=== PATIENT | female | born 1945 | race Caucasian/White ===

== ENCOUNTER → 2018-01-24 | Outpatient (CLI) | payer MEDICARE, OTHER ==
[2018-01-24 18:00] LABS: ALANINE AMINOTRANSFERASE 26 U/L (9-52); ALBUMIN 3.7 g/dL (3.5-5.0); ALKALINE PHOSPHATASE 107 U/L (38-126); ANION GAP 6 (5-19); ASPARTATE AMINO TRANSFERASE 23 U/L (14-36); BILIRUBIN,DIRECT 0.2 mg/dL (0.0-0.4); BILIRUBIN,TOTAL 0.4 mg/dL (0.2-1.3); BLOOD UREA NITROGEN 27 mg/dL (7-20); CALCIUM 9.7 mg/dL (8.4-10.2); CARBON DIOXIDE 29 mmol/L (22-30); CHLORIDE 108 mmol/L (98-107); GLUCOSE 90 mg/dL (75-110); POTASSIUM 3.9 mmol/L (3.6-5.0); TOTAL PROTEIN 6.6 g/dL (6.3-8.2)
== END ==
LOC: OD 16:35
PROVIDERS: ATTEND Physician Assistant
DX: R60.9 Edema, unspecified (principal)
CPT/HCPCS: 36415; 80048; 80076

== ENCOUNTER → 2018-03-19 | Outpatient (CLI) | payer MEDICARE, OTHER ==
--- NOTE | 2018-03-19 15:32 | RADIOLOGY REPORT (SQ) ---
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 TECHNIQUE: CT scan of the chest performed using helical scanning technique with dynamic intravenous contrast injection. Images reviewed with lung, soft tissue and bone windows. Reconstructed coronal and sagittal MPR images reviewed. Additional 3 dimensional post-processing performed to develop Maximal Intensity Projection images (NM P). All images stored on PACS. All CT scanners at this facility use dose modulation, iterative reconstruction, and/or weight based d osing when appropriate to reduce radiation dose to as low as reasonably achievable (ALARA). [facility]: Dose Right [facility]: CareDose [facility]: Dose Right [facility]: Teradose 4D [facility]: [employer] CONTRAST TYPE AND DOSE: 48 cc Omnipaque 350 Contrast bolus optimized for the pulmonary arteries. Not diagnostic for the aorta. RENAL FUNCTION: Creatinine 0.8 RADIATION DOSE: . LIMITATIONS: None. FINDINGS: LUNGS AND PLEURA: Minimal bibasilar hypoventilatory change. No masses, infiltrates, or pn eumothorax. No pleural effusions or pleural calcifications. AORTA AND GREAT VESSELS: Mild dilation of the ascending aorta measuring up to 3.9 cm. Vascular stent within the proximal left internal carotid artery. Partially visualized abdominal aortic vascular st ent. Scattered aortic atherosclerosis. Some wall HEART: No pericardial effusion. No significant coronary artery calcifications. PULMONARY ARTERIES: Contrast bolus not optimized for evaluation of the pulmonary arteries. HILAR AND MEDIASTINAL STRUCTURES: No identified masses or abnormal nodes. HARDWARE: Vascular stent in proximal left carotid artery. UPPER ABDOMEN: Partially visualized abdominal aortic stent. THYROID AND OTHER SOFT TISSUES: Asymmetric soft tissue densities within the bilateral breasts. BONES: Compression fracture of the L1 vertebral body with approximately 20% height loss. Mild retrop ulsion at the T12-L1 disc space. Acute or significant finding. 3D MIPS: Confirm above findings. OTHER: No other significant finding. IMPRESSION: Dilation of the ascending aorta measuring up to 3.9 cm. Partially visualized abdominal aortic stent. Asymmetric soft tissue density within the bilateral breasts. Recommend correlation with mammographic history. L1 compression fracture with approximately 20% height loss, chronicity uncertain. COMMENT: Quality ID # 436: Final reports with documentation of one or more dose reduction techniques (e.g., Automated exposure control, adjustment of the mA and/or kV according to patient size, use of iterative reconstruction technique) TECHNICAL DOCUMENTATION: JOB ID: [id number] [email or web address]- All Rights Reserved Reading location - IP/workstation name: [email or web address]
== END ==
LOC: RAD 09:32
PROVIDERS: ATTEND Physician Assistant
DX: I71.2 Thoracic aortic aneurysm, without rupture (principal)
CPT/HCPCS: 71275; 82565

== ENCOUNTER → 2018-03-27 | Outpatient (CLI) | payer MEDICARE, OTHER ==
[2018-03-27 11:08] LABS: ALANINE AMINOTRANSFERASE 18 U/L (9-52); ALBUMIN 3.7 g/dL (3.5-5.0); ALKALINE PHOSPHATASE 120 U/L (38-126); ANION GAP 5 (5-19); ASPARTATE AMINO TRANSFERASE 24 U/L (14-36); BILIRUBIN,DIRECT 0.2 mg/dL (0.0-0.4); BILIRUBIN,TOTAL 0.4 mg/dL (0.2-1.3); BLOOD UREA NITROGEN 23 mg/dL (7-20); CALCIUM 9.7 mg/dL (8.4-10.2); CARBON DIOXIDE 28 mmol/L (22-30); CHLORIDE 108 mmol/L (98-107); GLUCOSE 102 mg/dL (75-110); POTASSIUM 4.6 mmol/L (3.6-5.0); SODIUM 140.7 mmol/L (137-145); TOTAL PROTEIN 6.6 g/dL (6.3-8.2)
== END ==
LOC: OD 10:00
PROVIDERS: ATTEND Physician Assistant
DX: R60.9 Edema, unspecified (principal); I10 Essential (primary) hypertension; Z79.899 Other long term (current) drug therapy
CPT/HCPCS: 36415; 80048; 80076

== ENCOUNTER → 2018-04-16 | Outpatient (CLI) | payer MEDICARE, OTHER ==
[2018-04-16 14:31] LABS: ALANINE AMINOTRANSFERASE 50 U/L (9-52); ALBUMIN 3.6 g/dL (3.5-5.0); ALKALINE PHOSPHATASE 103 U/L (38-126); ANION GAP 8 (5-19); ASPARTATE AMINO TRANSFERASE 28 U/L (14-36); BILIRUBIN,DIRECT 0.2 mg/dL (0.0-0.4); BILIRUBIN,TOTAL 0.4 mg/dL (0.2-1.3); BLOOD UREA NITROGEN 27 mg/dL (7-20); CALCIUM 9.7 mg/dL (8.4-10.2); CARBON DIOXIDE 27 mmol/L (22-30); CHLORIDE 106 mmol/L (98-107); GLUCOSE 101 mg/dL (75-110); POTASSIUM 4.3 mmol/L (3.6-5.0); SODIUM 141.2 mmol/L (137-145); TOTAL PROTEIN 6.6 g/dL (6.3-8.2)
== END ==
LOC: OD 12:47
PROVIDERS: ATTEND Physician Assistant
DX: R60.9 Edema, unspecified (principal); I10 Essential (primary) hypertension; R06.00 Dyspnea, unspecified; Z79.899 Other long term (current) drug therapy
CPT/HCPCS: 36415; 80048; 80076; 83880

== ENCOUNTER → 2018-04-19 | Outpatient (CLI) | payer MEDICARE, OTHER ==
--- NOTE | 2018-04-24 14:46 | WOMENS IMAGING REPORT ---
EXAM DESCRIPTION: 3D SCREENING MAMMO BILAT COMPLETED DATE/TIME: 04/19/2018 12:18 pm REASON FOR STUDY: Z12.31 Z12.31 ENCNTR SCREEN MAMMOGRAM FOR MALIGNANT NEOPLASM OF EMELY COMPARISON: 04/06/2017, 04/05/2016, and 01/29/2015 TECHNIQUE: Standard craniocaudal and mediolateral oblique views of each breast recorded using digita l acquisition and breast tomosynthesis. LIMITATIONS: None. FINDINGS: Findings present which are benign by mammographic criteria. No suspicious masses, calcifi cations or architectural distortion. Pertinent benign findings: Stable surgical changes and extensive calcifications. Read with the assistance of CAD. .[facility] - R2 Cenova Version 1.3 .[facility] Imaging - R2 Cenova Version 1.3 .[facility] Imaging - R2 Cenova Version 2.4 .[facility] [place] R2 Cenova Version 2.4 .[facility] - R2 Button Reclaimer Version 9.2 Benign mammographic findings may include one or more of the following: Smooth masses, popcorn/rim/co arse calcifications, asymmetries, post-procedure changes, and lesions with long-standing stability. IMPRESSION: BENIGN MAMMOGRAPHIC FINDINGS. BIRADS 2 BREAST DENSITY: c. The breasts are heterogeneously dense, which may obscure small masses. BIRAD: 2 BENIGN FINDING(S) RECOMMENDATION: RECOMMENDATION: ROUTINE SCREENING COMMENT: The patient has been notified of the results by letter per SA requirements. Additional no tification policies are in place for contacting patient with suspicious or incomplete findings. Quality ID #225: The [employer] recommends an annual screening mammogram for women aged 40 years or over. This facility utilizes a reminder system to ensure that all patients receive reminder letters, and/or direct phone calls for appointments. This includes reminders for routine scr eening mammograms, diagnostic mammograms, or other Breast Imaging Interventions when appropriate. Th is patient will be placed in the appropriate reminder system. The [employer] (ACR) has developed recommendations for screening MRI of the breast s in certain patient populations, to be used in conjunction with mammography. Breast MRI surveillanc e may be appropriate for women with more than 20% lifetime risk of developing breast cancer as deter mined by genetic testing, significant family history of the disease, or history of mantle radiation f or Hodgkins Disease. ACR Practice Guidelines 2008. DBT Technology DBT is a type of tomographic mammography. With conventional mammography, overlapping breast tissue ma y make lesions difficult to detect, even with good compression. DBT uses an x-ray tube that rotates a round the breast, taking images at different angles. These images are then combined to create thin sl ices of the breast that the radiologist can view as a 3D reconstruction. The [email or web address] unit can perform full-field digital mammograms (2D imaging); or DBT (3D imaging); or both, in a combination mode that quickly performs both the mammogram and the tomosynthesis scan while the breast is still compressed. PQRS 6045F: Fluoroscopic imaging is not utilized for breast tomosynthesis. TECHNICAL DOCUMENTATION: FINDING NUMBER: (1) ASSESSMENT: (1) JOB ID: [id number] [employer]- All Rights Reserved Reading location - IP/workstation name: [email or web address]
== END ==
LOC: WI 14:52
PROVIDERS: ATTEND Physician Assistant
DX: Z12.31 Encounter for screening mammogram for malignant neoplasm of breast (principal)
CPT/HCPCS: 77063; 77067

== ENCOUNTER → 2018-07-11 | Outpatient (CLI) | payer MEDICARE, OTHER ==
[2018-07-11 15:58] LABS: ABSOLUTE EOSINOPHILS # (AUTO) 0.1 10^3/uL (0.0-0.6); ABSOLUTE LYMPHOCYTES (AUTO) 1.8 10^3/uL (0.5-4.7); ABSOLUTE MONOCYTES (AUTO) 0.3 10^3/uL (0.1-1.4); ABSOLUTE NEUT (AUTO) 3.8 10^3/uL (1.7-8.2); BASOPHILS % (AUTO) 0.6 % (0-2); EOSINOPHILS % (AUTO) 2.4 % (0-6); HEMATOCRIT 34.9 % (36.0-47.0); HEMOGLOBIN 12.3 g/dL (12.0-15.5); LYMPHOCYTES % (AUTO) 29.4 % (13-45); MEAN CORPUSCULAR HGB CONC 35.1 g/dL (32.0-36.0); MEAN CORPUSCULAR VOLUME 94 fl (80-97); MONOCYTES % (AUTO) 5.3 % (3-13); PLATELET COUNT 158 10^3/uL (150-450); RED BLOOD COUNT 3.71 10^6/uL (3.72-5.28); RED CELL DISTRIBUTION WIDTH 13.6 % (11.5-14.0); SEGMENTED NEUTROPHILS % (AUTO) 62.3 % (42-78); TOTAL CELLS COUNTED % (AUTO) 100 %; WHITE BLOOD COUNT 6.2 10^3/uL (4.0-10.5)
[2018-07-11 16:23] LABS: ALANINE AMINOTRANSFERASE 18 U/L (9-52); ALBUMIN 3.5 g/dL (3.5-5.0); ALKALINE PHOSPHATASE 94 U/L (38-126); ANION GAP 6 (5-19); ASPARTATE AMINO TRANSFERASE 19 U/L (14-36); BILIRUBIN,DIRECT 0.2 mg/dL (0.0-0.4); BILIRUBIN,TOTAL 0.4 mg/dL (0.2-1.3); BLOOD UREA NITROGEN 49 mg/dL (7-20); CALCIUM 9.8 mg/dL (8.4-10.2); CARBON DIOXIDE 25 mmol/L (22-30); CHLORIDE 110 mmol/L (98-107); GLUCOSE 94 mg/dL (75-110); TOTAL PROTEIN 6.3 g/dL (6.3-8.2)
[2018-07-11 16:36] LABS: FREE T3 2.7 pg/mL (2.77-5.27); FREE T4 (FREE THYROXINE) 2.17 ng/dL (0.78-2.19)
[2018-07-11 16:48] LABS: ALANINE AMINOTRANSFERASE 18 U/L (9-52); ALBUMIN 3.5 g/dL (3.5-5.0); ALKALINE PHOSPHATASE 94 U/L (38-126); ANION GAP 6 (5-19); ASPARTATE AMINO TRANSFERASE 19 U/L (14-36); BILIRUBIN,DIRECT 0.2 mg/dL (0.0-0.4); BILIRUBIN,TOTAL 0.4 mg/dL (0.2-1.3); BLOOD UREA NITROGEN 49 mg/dL (7-20); CALCIUM 9.8 mg/dL (8.4-10.2); CARBON DIOXIDE 25 mmol/L (22-30); CHLORIDE 110 mmol/L (98-107); GLUCOSE 94 mg/dL (75-110); TOTAL PROTEIN 6.3 g/dL (6.3-8.2)
== END ==
LOC: OD 14:31
PROVIDERS: ATTEND Physician Assistant
DX: R60.9 Edema, unspecified (principal); I10 Essential (primary) hypertension; F32.9 Major depressive disorder, single episode, unspecified; Z79.899 Other long term (current) drug therapy; G89.4 Chronic pain syndrome
CPT/HCPCS: 36415; 80048; 80053; 80076; 84439; 84481; 85025

== ENCOUNTER → 2018-09-11 | Outpatient (CLI) | payer MEDICARE, OTHER ==
--- NOTE | 2018-09-11 15:43 | RADIOLOGY REPORT (SQ) ---
EXAM DESCRIPTION: CTA CHEST COMPLETED DATE/TIME: 09/11/2018 3:11 pm REASON FOR STUDY: I71.2 THORACIC AORTIC ANEURYSM, WITHOUT RUPTURE I71.2 THORACIC AORTIC ANEURYSM, W ITHOUT RUPTURE COMPARISON: 03/19/2018 TECHNIQUE: CT scan of the chest performed using helical scanning technique with dynamic intravenous contrast injection. Images reviewed with lung, soft tissue and bone windows. Reconstructed coronal and sagittal MPR images reviewed. Additional 3 dimensional post-processing performed to develop Maximal Intensity Projection images (NE P). All images stored on PACS. All CT scanners at this facility use dose modulation, iterative reconstruction, and/or weight based d osing when appropriate to reduce radiation dose to as low as reasonably achievable (ALARA). [facility]: Dose Right [facility]: CareDose [facility]: Dose Right [facility]: Teradose 4D [facility]: [employer] CONTRAST TYPE AND DOSE: contrast/concentration: Isovue 350.00 mg/ml; Total Contrast Delivered: 48.0 ml; Total Saline Delivered: 78.0 ml Contrast bolus optimized for the pulmonary arteries. Not diagnostic for the aorta. RENAL FUNCTION: Creatinine 1.0 RADIATION DOSE: CT Rad equipment meets quality standard of care and radiation dose reduction techniq ues were employed. CTDIvol: 5.4 - 22.5 mGy. DLP: 208 mGy-cm. . LIMITATIONS: None. FINDINGS: LUNGS AND PLEURA: Basilar hypoventilatory change. Ground-glass opacity within the anterio r right upper lobe, new from prior. No significant pleural effusion. No pneumothorax. AORTA AND GREAT VESSELS: Stable dilation of the ascending aorta measuring up to 3.9 cm. HEART: No pericardial effusion. Mild scattered coronary atherosclerosis. PULMONARY ARTERIES: Contrast timing not optimized for evaluation of pulmonary embolus. HILAR AND MEDIASTINAL STRUCTURES: No identified masses or abnormal nodes. HARDWARE: None in the chest. UPPER ABDOMEN: No significant findings. Limited exam. THYROID AND OTHER SOFT TISSUES: Unchanged asymmetric soft tissue the density within the breasts, osvaldo mmend correlation with mammographic history. Unremarkable thyroid. BONES: No acute bony abnormality. Stable compression deformity of L1. 3D MIPS: Confirm above findings. OTHER: No other significant finding. IMPRESSION: 1. Stable dilation of the ascending aorta measuring up to 3.9 cm. 2. New mild ground-glass opacity within the anterior right upper lobe likely infectious/ inflammator y. COMMENT: Quality ID # 436: Final reports with documentation of one or more dose reduction techniques (e.g., Automated exposure control, adjustment of the mA and/or kV according to patient size, use of iterative reconstruction technique) TECHNICAL DOCUMENTATION: JOB ID: [id number] [employer]- All Rights Reserved Reading location - IP/workstation name: [email or web address]-
== END ==
LOC: RAD 14:35
PROVIDERS: ATTEND Physician Assistant
DX: I71.2 Thoracic aortic aneurysm, without rupture (principal)
CPT/HCPCS: 71275; 82565

== ENCOUNTER → 2018-10-15 | Outpatient (CLI) | payer MEDICARE, OTHER ==
[2018-10-15 13:57] LABS: ABSOLUTE EOSINOPHILS # (AUTO) 0.1 10^3/uL (0.0-0.6); ABSOLUTE LYMPHOCYTES (AUTO) 1.6 10^3/uL (0.5-4.7); ABSOLUTE MONOCYTES (AUTO) 0.4 10^3/uL (0.1-1.4); ABSOLUTE NEUT (AUTO) 3.1 10^3/uL (1.7-8.2); BASOPHILS % (AUTO) 0.7 % (0-2); EOSINOPHILS % (AUTO) 2.4 % (0-6); HEMATOCRIT 32.2 % (36.0-47.0); HEMOGLOBIN 11.4 g/dL (12.0-15.5); LYMPHOCYTES % (AUTO) 30.7 % (13-45); MEAN CORPUSCULAR HEMOGLOBIN 33.7 pg (27.0-33.4); MEAN CORPUSCULAR HGB CONC 35.4 g/dL (32.0-36.0); MEAN CORPUSCULAR VOLUME 95 fl (80-97); MONOCYTES % (AUTO) 8.3 % (3-13); PLATELET COUNT 162 10^3/uL (150-450); RED BLOOD COUNT 3.39 10^6/uL (3.72-5.28); RED CELL DISTRIBUTION WIDTH 13.1 % (11.5-14.0); SEGMENTED NEUTROPHILS % (AUTO) 57.9 % (42-78); TOTAL CELLS COUNTED % (AUTO) 100 %; WHITE BLOOD COUNT 5.3 10^3/uL (4.0-10.5)
--- NOTE | 2018-10-15 14:07 | RADIOLOGY REPORT (SQ) ---
EXAM DESCRIPTION: CHEST PA/LATERAL COMPLETED DATE/TIME: 10/15/2018 1:43 pm REASON FOR STUDY: COUGH COMPARISON: CTA chest 09/11/2018, 03/19/2018 Two-view chest 12/29/2017 EXAM PARAMETERS: NUMBER OF VIEWS: two views TECHNIQUE: Digital Frontal and Lateral radiographic views of the chest acquired. RADIATION DOSE: NA LIMITATIONS: none FINDINGS: LUNGS AND PLEURA: Lungs are hyperinflated from obstructive disease. No acute infiltrates. No pleural effusion or pneumothorax. MEDIASTINUM AND HILAR STRUCTURES: No masses or contour abnormalities. HEART AND VASCULAR STRUCTURES: Heart normal size. No evidence for failure. BONES: Osteopenic, old T12 vertebra plana deformity HARDWARE: Aortic stent graft bottom edge of the field of view in the abdomen OTHER: No other significant finding. IMPRESSION: Obstructive lung disease. No acute infiltrates TECHNICAL DOCUMENTATION: JOB ID: [id number] [employer]- All Rights Reserved Reading location - IP/workstation name: [email or web address]
== END ==
LOC: OD 13:08
PROVIDERS: ATTEND Nurse Practitioner
DX: R05 Cough (principal)
CPT/HCPCS: 36415; 71046; 85025

== ENCOUNTER → 2019-04-23 | Outpatient (CLI) | payer MEDICARE, OTHER ==
[2019-04-23 13:08] LABS: ALBUMIN 3.7 g/dL (3.5-5.0); ALKALINE PHOSPHATASE 115 U/L (38-126); ANION GAP 9 (5-19); ASPARTATE AMINO TRANSFERASE 40 U/L (14-36); BILIRUBIN,DIRECT 0.3 mg/dL (0.0-0.4); BILIRUBIN,TOTAL 0.4 mg/dL (0.2-1.3); BLOOD UREA NITROGEN 23 mg/dL (7-20); CALCIUM 9.6 mg/dL (8.4-10.2); CARBON DIOXIDE 27 mmol/L (22-30); CHLORIDE 103 mmol/L (98-107); CHOLESTEROL 125.61 mg/dL (0-200); GLUCOSE 94 mg/dL (75-110); POTASSIUM 4.4 mmol/L (3.6-5.0); TOTAL PROTEIN 6.6 g/dL (6.3-8.2); TRIGLYCERIDES 55 mg/dL (<150)
[2019-04-23 13:19] LABS: DIRECT LDL 63 mg/dL (<100)
== END ==
LOC: OD 11:34
PROVIDERS: ATTEND Physician Assistant
DX: E78.5 Hyperlipidemia, unspecified (principal); I10 Essential (primary) hypertension; Z79.899 Other long term (current) drug therapy
CPT/HCPCS: 36415; 80048; 80061; 80076

== ENCOUNTER 2019-06-19 07:42 | Emergency (ER) | payer MEDICARE, OTHER ==
--- NOTE | 2019-06-19 10:01 | EKG REPORT ---
SEVERITY:- ABNORMAL ECG - SINUS RHYTHM FIRST DEGREE AV BLOCK BORDERLINE T ABNORMALITIES, ANTERIOR LEADS : Confirmed by: Fred Petty 19-Jun-2019 10:01:05
[2019-06-19 10:14] LABS: ABSOLUTE BASOPHILS # (AUTO) 0.1 10^3/uL (0.0-0.2); ABSOLUTE EOSINOPHILS # (AUTO) 0.4 10^3/uL (0.0-0.6); ABSOLUTE MONOCYTES (AUTO) 0.4 10^3/uL (0.1-1.4); ABSOLUTE NEUT (AUTO) 4.5 10^3/uL (1.7-8.2); BASOPHILS % (AUTO) 0.9 % (0-2); EOSINOPHILS % (AUTO) 6.2 % (0-6); HEMATOCRIT 34.4 % (36.0-47.0); HEMOGLOBIN 12.1 g/dL (12.0-15.5); LYMPHOCYTES % (AUTO) 15.9 % (13-45); MEAN CORPUSCULAR HEMOGLOBIN 34.1 pg (27.0-33.4); MEAN CORPUSCULAR HGB CONC 35.2 g/dL (32.0-36.0); MEAN CORPUSCULAR VOLUME 97 fl (80-97); MONOCYTES % (AUTO) 6.5 % (3-13); PLATELET COUNT 198 10^3/uL (150-450); RED BLOOD COUNT 3.56 10^6/uL (3.72-5.28); RED CELL DISTRIBUTION WIDTH 12.8 % (11.5-14.0); SEGMENTED NEUTROPHILS % (AUTO) 70.5 % (42-78); TOTAL CELLS COUNTED % (AUTO) 100 %; WHITE BLOOD COUNT 6.4 10^3/uL (4.0-10.5)
[2019-06-19 10:16] LABS: APPEARANCE,URINE CLEAR; BILIRUBIN,URINE NEGATIVE (NEGATIVE); COLOR,URINE STRAW; GLUCOSE, URINE NEGATIVE (NEGATIVE); KETONES,URINE NEGATIVE (NEGATIVE); PROTEIN,URINE NEGATIVE (NEGATIVE); URINE SPECIFIC GRAVITY 1.009; UROBILINOGEN,URINE NEGATIVE mg/dL (<2.0)
--- NOTE | 2019-06-19 10:19 | RADIOLOGY REPORT (SQ) ---
EXAM DESCRIPTION: CHEST SINGLE VIEW COMPLETED DATE/TIME: 06/19/2019 10:07 am REASON FOR STUDY: syncope COMPARISON: 10/15/2018 NUMBER OF VIEWS: One view. TECHNIQUE: Single frontal radiographic view of the chest acquired. LIMITATIONS: None. FINDINGS: LUNGS AND PLEURA: Stable patchy increased density lateral to the right heart border. No pl eural effusion. Attenuated blood vessels and flattened marco-diaphragms. MEDIASTINUM AND HILAR STRUCTURES: No masses. Contour normal. HEART AND VASCULAR STRUCTURES: Heart normal in size. Normal vasculature. BONES: No acute findings. HARDWARE: None in the chest. OTHER: No other significant finding. IMPRESSION: COPD. NO ACUTE RADIOGRAPHIC FINDING IN THE CHEST. TECHNICAL DOCUMENTATION: JOB ID: [id number] 2010 [employer]- All Rights Reserved Reading location - IP/workstation name: [email or web address]
[2019-06-19 10:23] LABS: BACTERIA,URINE TRACE /HPF; RBC,URINE 0-1 /HPF
[2019-06-19 10:29] LABS: ALBUMIN 3.6 g/dL (3.5-5.0); ALKALINE PHOSPHATASE 134 U/L (38-126); ASPARTATE AMINO TRANSFERASE 52 U/L (14-36); BILIRUBIN,DIRECT 0.3 mg/dL (0.0-0.4); BILIRUBIN,TOTAL 0.5 mg/dL (0.2-1.3); BLOOD UREA NITROGEN 25 mg/dL (7-20); CALCIUM 9.2 mg/dL (8.4-10.2); CARBON DIOXIDE 26 mmol/L (22-30); CHLORIDE 105 mmol/L (98-107); GLUCOSE 109 mg/dL (75-110); POTASSIUM 3.9 mmol/L (3.6-5.0); TOTAL PROTEIN 6.8 g/dL (6.3-8.2)
[2019-06-19 10:31] LABS: ANION GAP 8 (5-19)
--- NOTE | 2019-06-19 10:37 | RADIOLOGY REPORT (SQ) ---
EXAM DESCRIPTION: CT HEAD WITHOUT COMPLETED DATE/TIME: 06/19/2019 10:25 am REASON FOR STUDY: Fall; blood thinners COMPARISON: None. TECHNIQUE: Axial images acquired through the brain without intravenous contrast. Images reviewed wi th bone, brain and subdural windows. Additional sagittal and coronal reconstructions were generated. Images stored on PACS. All CT scanners at this facility use dose modulation, iterative reconstruction, and/or weight based d osing when appropriate to reduce radiation dose to as low as reasonably achievable (ALARA). [facility]: Dose Right [facility]: CareDose [facility]: Dose Right [facility]: Teradose 4D [facility]: [employer] RADIATION DOSE: CT Rad equipment meets quality standard of care and radiation dose reduction techniq ues were employed. CTDIvol: 53.2 mGy. DLP: 1017 mGy-cm.mGy. LIMITATIONS: None. FINDINGS: VENTRICLES: Prominent. CEREBRUM: Encephalomalacia adjacent to right temporal craniotomy. No hemorrhage. No extra-axial flu id collection. CEREBELLUM: No masses. No hemorrhage. No alteration of density. No evidence for acute infarction. EXTRAAXIAL SPACES: Age-related involutional change. No fluid collections. No masses. ORBITS AND GLOBE: No intra- or extraconal masses. Normal contour of globe without masses. CALVARIUM: No fracture. PARANASAL SINUSES: No fluid levels. SOFT TISSUES: No mass or hematoma. OTHER: No other significant finding. IMPRESSION: Chronic postsurgical changes right frontal and temporal lobe. No acute findings. EVIDENCE OF ACUTE STROKE: NO. TECHNICAL DOCUMENTATION: JOB ID: [id number] Quality ID # [id number]: Final reports with documentation of one or more dose reduction techniques (e.g., Au tomated exposure control, adjustment of the mA and/or kV according to patient size, use of iterative reconstruction technique) 2010 [employer]- All Rights Reserved Reading location - IP/workstation name: [email or web address]
--- NOTE | 2019-06-19 10:38 | RADIOLOGY REPORT (SQ) ---
EXAM DESCRIPTION: CT CERVICAL SPINE WITHOUT COMPLETED DATE/TIME: 06/19/2019 10:25 am REASON FOR STUDY: Fall; blood thinners COMPARISON: None. TECHNIQUE: Axial images acquired through the cervical spine without intravenous contrast. Images re viewed with lung, soft tissue and bone windows. Reconstructed coronal and sagittal MPR images review ed. Images stored on PACS. All CT scanners at this facility use dose modulation, iterative reconstruction, and/or weight based d osing when appropriate to reduce radiation dose to as low as reasonably achievable (ALARA). [facility]: Dose Right [facility]: CareDose [facility]: Dose Right [facility]: Teradose 4D [facility]: DietBetter RADIATION DOSE: CT Rad equipment meets quality standard of care and radiation dose reduction techniq ues were employed. CTDIvol: 11.5 mGy. DLP: 208 mGy-cm. mGy. LIMITATIONS: None. FINDINGS: ALIGNMENT: Reversal of the lordotic curve. Grade 1 spondylolisthesis C4-5. MINERALIZATION: Normal. VERTEBRAL BODIES: No fractures or dislocation. DISCS: Multilevel disc space narrowing with osteophytes. FACETS, LATERAL MASSES, POSTERIOR ELEMENTS: Facet arthropathy. No fractures. No dislocation. No ac aurea findings. HARDWARE: None in the spine. VISUALIZED RIBS: No fractures. LUNG APICES AND SOFT TISSUES: No significant or acute findings. OTHER: No other significant finding. IMPRESSION: CHRONIC DEGENERATIVE CHANGES. NO ACUTE FINDINGS. TECHNICAL DOCUMENTATION: JOB ID: [id number] Quality ID # [id number]: Final reports with documentation of one or more dose reduction techniques (e.g., Au tomated exposure control, adjustment of the mA and/or kV according to patient size, use of iterative reconstruction technique) 2010 [employer]- All Rights Reserved Reading location - IP/workstation name: [email or web address]
[2019-06-19 10:42] LABS: NT PRO BNP 1610 pg/mL (<125)
[2019-06-19 10:46] LABS: TROPONIN I < 0.012 ng/mL
--- NOTE | 2019-06-19 14:26 | ER Document Report ---
ED General - General Chief Complaint: Syncope Stated Complaint: FALL/RIB PAIN/LEG PAIN Time Seen by Provider: 06/19/19 09:20 TRAVEL OUTSIDE OF THE [place] IN LAST 30 DAYS: No - HPI Notes: Chief complaint: Recurrent falls 74-year-old female with progressive debility living by herself ambulating with a walker. Seen today for evaluation of recurrent falls. This is been going on now for several months and is getting worse. She has had recurrent brief syncopal episodes. Most recent of these occurred last night in her bathroom. Family members came and got her up. She has widespread bruises of varying age. She denies any pain in her hip or knees at this time. She has chronic edema of both lower extremities. She has been worked up extensively by her primary care doctor including ambulatory cardiac monitoring on 2 different occasions with nothing of significance found. Patient is fiercely independent and says that she will not consider moving into assisted living or having a live-in wheel alignment mechanic at this point. - Related Data Allergies/Adverse Reactions: Penicillins Allergy (Verified 12/29/17 14:24) Quinolones Allergy (Verified 12/29/17 14:24) Past Medical History - General Information source: Patient, Relative - Social History Smoking Status: Unknown if Ever Smoked Family History: Reviewed & Not Pertinent Patient has suicidal ideation: No Patient has homicidal ideation: No - Past Medical History Cardiac Medical History: Reports: Hx Hypertension Renal/ Medical History: Reports: Hx Peritoneal Dialysis Review of Systems - Review of Systems Notes: Constitutional: Negative for fever. HENT: Negative for sore throat. Eyes: Negative for visual changes. Cardiovascular: Negative for chest pain. Respiratory: Negative for shortness of breath. Gastrointestinal: Negative for abdominal pain, vomiting or diarrhea. Genitourinary: Negative for dysuria. Musculoskeletal: Negative for back pain. Skin: Negative for rash. Neurological: Negative for headaches, weakness or numbness. 10 point ROS negative except as marked above and in HPI. Physical Exam - Vital signs Vitals: Temp Pulse BP Pulse Ox 97.9 F 59 L 176/84 H 100 06/19/19 07:48 06/19/19 07:48 06/19/19 07:48 06/19/19 07:48 - Notes Notes: GENERAL: Frail elderly female appearing in no acute distress.. SKIN: Good turgor no rashes. HEAD: Old ecchymosis of left periorbital area. EYES: PERRLA. EOMI. Conjunctivae and sclerae clear. EARS: CANALS AND TMS CLEAR. NOSE: CLEAR. MOUTH: Moist mucosa. Dentures present. No stridor or edema. No drooling. NECK: Supple. No masses or thyromegaly. No adenopathy. Carotids 2+ without bruits. No JVD. BACK: Symmetrical without tenderness. CHEST: Respirations unlabored. Breath sounds clear and symmetrical. HEART: Regular rhythm. No murmur gallop or rub. ABDOMEN: Soft nontender without masses, organomegaly or rebound. Bowel sounds normally active. No bruits. GENITALIA: Deferred. EXTREMITIES: 1+ bilateral pretibial edema. No calf tenderness. Cap refill less than 1.5 seconds. Dorsalis pedis and posterior tibial pulses 3+ and symmetrical. NEUROLOGICAL: GCS 15. Alert and oriented x3. Patient is able to ambulate with a walker. Fluent speech. Cranial nerves II through XII intact. Sensorimotor and cerebellar normal. Normal tone. PSYCHIATRIC: Appropriate affect. Course - Re-evaluation Re-evalutation: 06/19/19 14:26 Based on extensive work-up this patient has had previously and essentially negative findings on today's work-up including CT of head and neck, chest x-ray, troponin, comprehensive metabolic profile, CBC and urinalysis she does not appear to meet criteria for inpatient admission at this time. I am concerned about her wellbeing at home and have asked high school social studies teacher to see her to discuss options for home care or assisted living. She remains vehemently opposed to any consideration of an extended care facility or assisted living. Discharge planning team will attempt to arrange home care services for the patient will have her follow-up with her primary care physician. - Vital Signs Vital signs: Temp Pulse Resp BP Pulse Ox 97.9 F 60 13 186/79 H 98 06/19/19 07:48 06/19/19 11:59 06/19/19 10:02 06/19/19 11:59 06/19/19 10:02 - Laboratory Result Diagrams: 06/19/19 09:15 06/19/19 09:15 Laboratory results interpreted by me: 06/19/19 06/19/19 06/19/19 09:15 09:15 09:15 RBC 3.56 L Hct 34.4 L MCH 34.1 H Eos % (Auto) 6.2 H BUN 25 H AST 52 H Alkaline Phosphatase 134 H NT-Pro-B Natriuret Pep 1610 H - Diagnostic Test Radiology reviewed: Reports reviewed - No acute changes on head CT or C-spine CT. Changes consistent with COPD on chest x-ray. Discharge - Discharge Clinical Impression: Recurrent falls while walking COPD (chronic obstructive pulmonary disease) Qualifiers: COPD type: unspecified COPD Qualified Code(s): J44.9 - Chronic obstructive pulmonary disease, unspecified Condition: Stable Disposition: HOME, SELF-CARE Additional Instructions: Return here as needed for new or worsening symptoms. Stop smoking. Follow-up with your primary care provider at your earliest convenience. Forms: Smoking Cessation Education
[2019-06-19 14:58] VITALS: BP 173/80
== END 2019-06-19 15:15 | disposition home or self-care (01) ==
LOC: ER 07:42
DX: R29.6 Repeated falls (principal); J44.9 Chronic obstructive pulmonary disease, unspecified; R55 Syncope and collapse; T14.8XXA Other injury of unspecified body region, initial encounter; W19.XXXA Unspecified fall, initial encounter; R60.0 Localized edema; Z88.0 Allergy status to penicillin; I10 Essential (primary) hypertension
CPT/HCPCS: 36415; 70450; 71045; 72125; 80053; 81001; 83880; 84484; 85025; 93005; 93010; 99284

== ENCOUNTER 2019-08-26 16:28 | Emergency (ER) | payer MEDICARE, OTHER ==
--- NOTE | 2019-08-26 16:48 | ER Document Report ---
ED Medical Screen (RME) - General Chief Complaint: Fall Injury Stated Complaint: FALL/FACIAL INJURY Time Seen by Provider: 08/26/19 16:42 Primary Care Provider: ANTHONY HENLEY FNP-C [Primary Care Provider] - Follow up as needed Mode of Arrival: Wheelchair Information source: Patient Notes: 74-year-old female patient presenting to the emergency department with recurrent falls. Patient reports her last fall was yesterday. She states she does not know why she was falling she just blacks out and falls. Yesterday she fell forward striking her face onto a fixed object. She has ecchymosis around the left eye and a hematoma to the left forehead. Patient denies any dizziness leading up to these events. She denies any extremity pain. She does report back pain but states this is chronic for her. She denies any neck pain and has no vertebral tenderness upon palpation. I have greeted and performed a rapid initial assessment of this patient. A comprehensive ED assessment and evaluation of the patient, analysis of test results and completion of the medical decision making process will be conducted by additional ED providers. I have specifically instructed the patient or family members with the patient to immediately return to any nursing staff should anything change in the patient's condition or with their chief complaint. TRAVEL OUTSIDE OF THE [place] IN LAST 30 DAYS: No - Related Data Allergies/Adverse Reactions: Penicillins Allergy (Verified 12/29/17 14:24) Quinolones Allergy (Verified 12/29/17 14:24) Past Medical History - Social History Frequency of alcohol use: None Drug Abuse: None - Past Medical History Cardiac Medical History: Reports: Hx Hypertension Renal/ Medical History: Reports: Hx Peritoneal Dialysis Physical Exam - Vital signs Vitals: Temp Pulse Resp BP Pulse Ox 97.7 F 58 L 16 158/74 H 100 08/26/19 16:36 08/26/19 16:36 08/26/19 16:36 08/26/19 16:36 08/26/19 16:36 Course - Vital Signs Vital signs: Temp Pulse Resp BP Pulse Ox 97.7 F 58 L 16 158/74 H 100 08/26/19 16:40 08/26/19 16:36 08/26/19 16:36 08/26/19 16:36 08/26/19 16:36 Doctor's Discharge - Discharge Referrals: ALWES,ANTHONY, SHIP PURSER-C [Primary Care Provider] - Follow up as needed
[2019-08-26 17:29] LABS: ABSOLUTE EOSINOPHILS # (AUTO) 0.1 10^3/uL (0.0-0.6); ABSOLUTE LYMPHOCYTES (AUTO) 1.5 10^3/uL (0.5-4.7); ABSOLUTE MONOCYTES (AUTO) 0.4 10^3/uL (0.1-1.4); ABSOLUTE NEUT (AUTO) 2.5 10^3/uL (1.7-8.2); EOSINOPHILS % (AUTO) 2.4 % (0-6); HEMATOCRIT 33.3 % (36.0-47.0); HEMOGLOBIN 11.5 g/dL (12.0-15.5); LYMPHOCYTES % (AUTO) 33.2 % (13-45); MEAN CORPUSCULAR HEMOGLOBIN 33.6 pg (27.0-33.4); MEAN CORPUSCULAR HGB CONC 34.5 g/dL (32.0-36.0); MEAN CORPUSCULAR VOLUME 97 fl (80-97); MONOCYTES % (AUTO) 8.2 % (3-13); PLATELET COUNT 183 10^3/uL (150-450); RED BLOOD COUNT 3.42 10^6/uL (3.72-5.28); RED CELL DISTRIBUTION WIDTH 13.9 % (11.5-14.0); SEGMENTED NEUTROPHILS % (AUTO) 55.2 % (42-78); TOTAL CELLS COUNTED % (AUTO) 100 %; WHITE BLOOD COUNT 4.5 10^3/uL (4.0-10.5)
--- NOTE | 2019-08-26 17:51 | RADIOLOGY REPORT (SQ) ---
EXAM DESCRIPTION: CT HEAD WITHOUT IMAGES COMPLETED DATE/TIME: 08/26/2019 5:17 pm REASON FOR STUDY: fall, forehead/facial injury COMPARISON: 06/19/2019 TECHNIQUE: Axial images acquired through the brain without intravenous contrast. Images reviewed wi th bone, brain and subdural windows. Additional sagittal and coronal reconstructions were generated. Images stored on PACS. All CT scanners at this facility use dose modulation, iterative reconstruction, and/or weight based d osing when appropriate to reduce radiation dose to as low as reasonably achievable (ALARA). [facility]: Dose Right [facility]: CareDose [facility]: Dose Right [facility]: Teradose 4D [facility]: Smart aihuishou RADIATION DOSE: CT Rad equipment meets quality standard of care and radiation dose reduction techniq ues were employed. CTDIvol: 23.9 mGy. DLP: 469 mGy-cm. LIMITATIONS: None. FINDINGS: VENTRICLES: Prominent, unchanged finding, commensurate with the sulci. CEREBRUM: Encephalomalacia changes in the right temporal lobe adjacent to the prior craniotomy, unch anged finding. No masses. No hemorrhage. No midline shift. No evidence for acute infarction. CEREBELLUM: No masses. No hemorrhage. No alteration of density. No evidence for acute infarction. EXTRAAXIAL SPACES: Age related involutional change. No fluid collections. No masses. ORBITS AND GLOBE: No intra- or extraconal masses. Normal contour of globe without masses. CALVARIUM: Prior right frontal and temporal craniotomy. PARANASAL SINUSES: No fluid or mucosal thickening. Mild deviation the nasal septum to the left of th e midline. SOFT TISSUES: A hematoma in the left frontal scalp. No evidence of acute fracture. OTHER: No other significant finding. IMPRESSION: 1. A hematoma in the left frontal scalp region. No evidence of acute osseous findings. 2. Chronic post surgical changes in the right frontal and temporal lobes. No acute intracranial abn ormality. EVIDENCE OF ACUTE STROKE: NO. COMMENT: Quality ID # [id number]: Final reports with documentation of one or more dose reduction techniques (e.g., Automated exposure control, adjustment of the mA and/or kV according to patient size, use of iterative reconstruction technique) TECHNICAL DOCUMENTATION: JOB ID: [id number] 2010 [employer]- All Rights Reserved Reading location - IP/workstation name: [email or web address]
[2019-08-26 18:17] LABS: ALBUMIN 3.8 g/dL (3.5-5.0); ALKALINE PHOSPHATASE 119 U/L (38-126); ANION GAP 7 (5-19); ASPARTATE AMINO TRANSFERASE 29 U/L (14-36); BILIRUBIN,TOTAL 0.4 mg/dL (0.2-1.3); BLOOD UREA NITROGEN 21 mg/dL (7-20); CALCIUM 9.3 mg/dL (8.4-10.2); CARBON DIOXIDE 24 mmol/L (22-30); CHLORIDE 105 mmol/L (98-107); GLUCOSE 89 mg/dL (75-110); POTASSIUM 3.8 mmol/L (3.6-5.0); TOTAL PROTEIN 6.7 g/dL (6.3-8.2)
[2019-08-26] MEDS ORDERED: ACETAMINOPHEN 325 MG TABLET PO ONE (22:03)
--- NOTE | 2019-08-26 22:09 | ER Document Report ---
ED General - General Chief Complaint: Fall Injury Stated Complaint: FALL/FACIAL INJURY Time Seen by Provider: 08/26/19 16:42 Primary Care Provider: ANTHONY HENLEY FNP-C [Primary Care Provider] - Follow up as needed Mode of Arrival: Wheelchair TRAVEL OUTSIDE OF THE [place] IN LAST 30 DAYS: No - HPI Notes: Patient is a 74-year-old female who presents to the emergency department for evaluation after a fall. She has been having these episodes where she falls without warning. They have been going on for the last several months. She is being evaluated by primary care, cardiology, and neurology for these falls. She states what happened yesterday and she fell down, striking her head. She really states that she had some pain yesterday but denies any pain today. She states that just feels sore to the touch. She states she had some swelling in the periorbital area, which is limiting her vision, but she states that that is improved as well. The patient has a mild headache that she rates a 1 out of 5, normally at home she would take a baby aspirin. She has had chronic leg edema for months. They are working on getting her SCDs. - Related Data Allergies/Adverse Reactions: Penicillins Allergy (Verified 12/29/17 14:24) Quinolones Allergy (Verified 12/29/17 14:24) Home Medications: Metoprolol 75 mg at bedtime, Lyrica 75 mg daily, aspirin 81 mg daily, fluoxetine 40 mg daily, furosemide 40 mg daily, dicyclomine 10 mg 4 times daily as needed, lisinopril 40 mg daily, oxybutynin 5 mg twice daily, Brio Ellipta as directed, simvastatin 20 mg p.o. nightly, Synthroid 175 mcg daily, Lyrica 150 mg nightly, Percocet 7.5/325 as needed Past Medical History - General Information source: Patient - Social History Smoking Status: Never Smoker Frequency of alcohol use: None Drug Abuse: None Family History: Reviewed & Not Pertinent Patient has homicidal ideation: No - Past Medical History Cardiac Medical History: Reports: Hx Hypercholesterolemia, Hx Hypertension Renal/ Medical History: Reports: Hx Peritoneal Dialysis Musculoskeletal Medical History: Reports Hx Musculoskeletal Deformity Psychiatric Medical History: Reports: Hx Depression Past Surgical History: Reports: Hx Cardiac Catheterization, Hx Cardiac Surgery, Other - Craniotomy for aneurysm repair Review of Systems - Review of Systems EENT: See HPI Cardiovascular: See HPI Musculoskeletal: See HPI -: Yes All other systems reviewed and negative Physical Exam - Vital signs Vitals: Temp Pulse Resp BP Pulse Ox 97.7 F 58 L 16 158/74 H 100 08/26/19 16:36 08/26/19 16:36 08/26/19 16:36 08/26/19 16:36 08/26/19 16:36 - Notes Notes: This is a very pleasant 74-year-old female who appears her stated age, no acute distress. Head is normocephalic. She has a large ecchymotic hematoma noted over the left frontoparietal scalp, with ecchymosis and edema in the periorbital region around the left eye. She has no orbital step-off. Pupils are equal and round, reactive to light. Nares are patent without septal hematoma. Her mucous is moist. Uvula is midline. Examination of the spine yields no midline tenderness step-off. No paraspinal musculature tenderness appreciated. Heart is regular rate and rhythm, lungs are clear to all station bilaterally. Abdomen soft, nontender, normoactive bowel sounds. Extremities show no cyanosis or clubbing. She has 2+ pitting edema, with occasional weeping noted to the left lower extremity. Posterior calves are nontender. Patient is awake, alert, o riented x3. Cranial nerves II - XII are grossly intact without focal neurological deficits. Strength is plus 4 out of 5 bilateral upper and lower extremities. Sensation is intact. Reflexes symmetrical. Intact [id number], rapid alternating movements, [id number]. Course - Re-evaluation Re-evalutation: 08/26/19 22:10 Patient presents to the emergency department for evaluation. She was evaluated through triage. She does have some periorbital ecchymosis, but her extraocular muscles are intact. She has no appreciable step-off. She has minimal pain in that area. I am not highly concerned about a facial fracture. She has no sign of intracranial bleeding on her head CT. Her laboratory investigations failed to reveal any significant electrolyte abnormality or cardiac enzyme elevation that would be responsible for her syncopal episode, and these are being worked up as an outpatient. We will give the patient some Tylenol, she is anxious to be discharged. She is to follow-up with primary care. She is told if she has any worsening or new concerning symptoms of any sort she needs to return immediately to the emergency department for reevaluation. - Vital Signs Vital signs: Temp Pulse Resp BP Pulse Ox 97.8 F 61 18 161/102 H 99 08/26/19 20:30 08/26/19 20:30 08/26/19 20:30 08/26/19 20:30 08/26/19 20:30 - Laboratory Result Diagrams: 08/26/19 17:06 08/26/19 17:06 Laboratory results interpreted by me: 08/26/19 08/26/19 17:06 17:06 RBC 3.42 L Hgb 11.5 L Hct 33.3 L MCH 33.6 H Sodium 135.9 L BUN 21 H - Diagnostic Test Radiology reviewed: Reports reviewed Radiology results interpreted by me: 08/26/19 22:[address] 08/26/19 16:45 IMPRESSION: 1. A hematoma in the left frontal scalp region. No evidence of acute osseous findings. 2. Chronic post surgical changes in the right frontal and temporal lobes. No acute intracranial abnormality. EVIDENCE OF ACUTE STROKE: NO. - EKG Interpretation by Me Additional EKG results interpreted by me: 08/26/19 22:12 Sinus bradycardia with a rate of 58 bpm. Normal axis. First-degree AV block. No acute ST changes concerning for ischemia or infarction. Discharge - Discharge Clinical Impression: Syncope and collapse Facial contusion Qualifiers: Encounter type: initial encounter Qualified Code(s): S00.83XA - Contusion of other part of head, initial encounter Closed head injury Qualifiers: Encounter type: initial encounter Qualified Code(s): S09.90XA - Unspecified injury of head, initial encounter Condition: Stable Disposition: HOME, SELF-CARE Instructions: Syncopal Episode ([facility]), Head Injury Precautions ([facility]) Additional Instructions: No fracture or bleeding was noted on your CT scan today. Your blood work showed no significant abnormality. Please continue to take your regular home medications as prescribed. Follow-up with your primary care provider this week. If you develop difficulty seeing, speaking, swallowing, increased pain, vomiting, or any other new or concerning symptoms, please return immediately to the emergency department for reevaluation. Referrals: ANTHONY HENLEY FNP-C [Primary Care Provider] - Follow up as needed
[2019-08-26 22:40] VITALS: BP 189/98
--- NOTE | 2019-08-27 07:51 | EKG REPORT ---
SEVERITY:- ABNORMAL ECG - SINUS RHYTHM FIRST DEGREE AV BLOCK : Confirmed by: Kourtney Torres MD 27-Aug-2019 07:50:36
== END 2019-08-26 22:30 | disposition home or self-care (01) ==
LOC: SUPCPDRO 16:28 → ER 16:28
DX: R55 Syncope and collapse (principal); S00.83XA Contusion of other part of head, initial encounter; S09.90XA Unspecified injury of head, initial encounter; R00.1 Bradycardia, unspecified; R60.0 Localized edema; I10 Essential (primary) hypertension; I44.0 Atrioventricular block, first degree; W19.XXXA Unspecified fall, initial encounter; Z91.81 History of falling; Z88.0 Allergy status to penicillin; Z88.8 Allergy status to other drugs, medicaments and biological substances; Z79.899 Other long term (current) drug therapy
CPT/HCPCS: 93005; 99284; 36415; 85025; 80053; 84484; 70450; 93010; A9270

== ENCOUNTER → 2019-09-09 | Outpatient (CLI) | payer MEDICARE, OTHER ==
[2019-09-09 13:42] LABS: ALBUMIN 3.6 g/dL (3.5-5.0); ALKALINE PHOSPHATASE 122 U/L (38-126); ANION GAP 6 (5-19); ASPARTATE AMINO TRANSFERASE 27 U/L (14-36); BILIRUBIN,TOTAL 0.4 mg/dL (0.2-1.3); BLOOD UREA NITROGEN 23 mg/dL (7-20); CALCIUM 9.3 mg/dL (8.4-10.2); CARBON DIOXIDE 27 mmol/L (22-30); CHLORIDE 107 mmol/L (98-107); CHOLESTEROL 123.57 mg/dL (0-200); GLUCOSE 129 mg/dL (75-110); POTASSIUM 4.3 mmol/L (3.6-5.0); TOTAL PROTEIN 6.5 g/dL (6.3-8.2); TRIGLYCERIDES 81 mg/dL (<150)
[2019-09-09 13:53] LABS: DIRECT LDL 57 mg/dL (<100)
== END ==
LOC: OD 12:43
PROVIDERS: ATTEND Physician Assistant
DX: E78.5 Hyperlipidemia, unspecified (principal); I10 Essential (primary) hypertension; Z79.899 Other long term (current) drug therapy
CPT/HCPCS: 36415; 80048; 80061; 80076

== ENCOUNTER → 2019-09-16 | Outpatient (CLI) | payer MEDICARE, OTHER | LOC: OD 16:18 | PROVIDERS: ATTEND Physician Assistant | DX: R73.01 Impaired fasting glucose (principal); R06.02 Shortness of breath | CPT/HCPCS: 36415; 83036; 83880 ==

== ENCOUNTER → 2020-01-30 | Outpatient (CLI) | payer MEDICARE, OTHER ==
[2020-01-30 13:18] LABS: HEMATOCRIT 32.7 % (36.0-47.0); HEMOGLOBIN 11.3 g/dL (12.0-15.5); MEAN CORPUSCULAR HEMOGLOBIN 33.1 pg (27.0-33.4); MEAN CORPUSCULAR HGB CONC 34.7 g/dL (32.0-36.0); MEAN CORPUSCULAR VOLUME 95 fl (80-97); PLATELET COUNT 197 10^3/uL (150-450); RED BLOOD COUNT 3.43 10^6/uL (3.72-5.28); RED CELL DISTRIBUTION WIDTH 12.9 % (11.5-14.0); WHITE BLOOD COUNT 6.3 10^3/uL (4.0-10.5)
[2020-01-30 13:43] LABS: ALBUMIN 3.8 g/dL (3.5-5.0); ALKALINE PHOSPHATASE 119 U/L (38-126); ANION GAP 6 (5-19); ASPARTATE AMINO TRANSFERASE 25 U/L (14-36); BILIRUBIN,DIRECT 0.4 mg/dL (0.0-0.4); BILIRUBIN,TOTAL 0.5 mg/dL (0.2-1.3); BLOOD UREA NITROGEN 28 mg/dL (7-20); CALCIUM 10.1 mg/dL (8.4-10.2); CARBON DIOXIDE 26 mmol/L (22-30); CHLORIDE 108 mmol/L (98-107); CHOLESTEROL 132.54 mg/dL (0-200); GLUCOSE 109 mg/dL (75-110); POTASSIUM 4.3 mmol/L (3.6-5.0); TOTAL PROTEIN 6.8 g/dL (6.3-8.2); TRIGLYCERIDES 92 mg/dL (<150)
[2020-01-30 13:58] LABS: DIRECT LDL 63 mg/dL (<100)
== END ==
LOC: OD 12:20
PROVIDERS: ATTEND Physician Assistant
DX: I10 Essential (primary) hypertension (principal); E78.5 Hyperlipidemia, unspecified; Z79.899 Other long term (current) drug therapy
CPT/HCPCS: 36415; 80048; 80061; 80076; 83735; 85027

== ENCOUNTER 2020-02-19 06:53 | Day surgery (SDC) | payer MEDICARE, OTHER ==
[~2020-02-19 06:53] MED LIST: DORZOLAMIDE HCL 2%/TIMOLOL MALEAT 0.5% OPH SOLN 10 ML OD PRN; KETOROLAC TROMETHAMINE 0.45% 4 DROP/0.4 ML DROPERETTE OD PRN; LIDOCAINE 3.5% OPH GEL/PF 1 ML/TUBE OD PRN; PREDNISOLONE ACETATE 1% OPH SUSP 5 ML OD PRN
[2020-02-19] MEDS ORDERED: EPINEPHRINE INJ/PF 1 MG/1 ML AMPULE ONE (06:58)
[2020-02-19] MEDS ORDERED: CHONDR SU A NA/HYALUR INTRAOC KIT (SURGICARE) ONE (06:58)
[2020-02-19] MEDS ORDERED: LIDOCAINE 1%/PHENYLEPHRINE 1.5% 1 ML VIAL ONE (06:58)
[2020-02-19] MEDS: CYCLOPENTOLATE 0.2%/PHENYLEPHRINE 1% OPH SOLN 2 ML OD PRN ×3 (07:15→07:40)
[2020-02-19] MEDS: TROPICAMIDE 1% OPH SOLN 15 ML OD PRN ×3 (07:15→07:40)
[2020-02-19] MEDS: BESIFLOXACIN HCL 0.6% OPH SUSP 5 ML BOTTLE OD PRN ×3 (07:15→08:06)
[2020-02-19] MEDS: TETRACAINE HCL 0.5% OPH SOLN 4 ML OD PRN ×3 (07:15→07:44)
[2020-02-19] MEDS ORDERED: MIDAZOLAM 2 MG/2 ML INJ ONE (07:16)
[2020-02-19] MEDS ORDERED: FENTANYL CITRATE INJ/PF 100 MCG/2 ML AMPUL ONE (07:17)
--- NOTE | 2020-02-19 12:01 | Operative Report ---
Operative Report-[facility] Operative Report: DATE OF SURGERY: 02/19/2020 PREOPERATIVE DIAGNOSIS: Cataract, right eye POSTOPERATIVE DIAGNOSIS: Cataract, right eye OPERATION: Cataract extraction with insertion of an IOL of the right eye. Intraocular Lens Model: [19.0 diopter SN 60 WF] Underwent surgery for difficulty seeing road signs SURGEON: Saul Washington MD ANESTHESIA: Topical PROCEDURE: After obtaining appropriate consent, the patient's right eye was prepped and draped in a sterile fashion as well as the surgeon in the sterile manner and cataract surgery was started. First a paracentesis blade was used to make a side-port incision. Viscoelastic was used to inflate the anterior chamber. Next a 2.4 mm incision was made with a 2.4 mm blade, clear corneal temporarily. A continuous capsulorrhexis was made using a cystotome and Utrata forceps. Following this hydrodissection was carried out to make the raquel fully loose and mobile and it was rotated. Following this, a divide and conquer technique was used to phacoemulsify the raquel. The remaining cortex was removed with an irrigation/aspiration. Provisc was instilled into the capsular bag to inflate the bag. The intraocular lens was placed. The remaining viscoelastic material was removed with irrigation/aspiration. Following this, the incision was found to be watertight. Besivance and Cosopt was instilled into the eye and a protective shield was placed over the eye. The patient was reurned to the postoperative recovery in a stable condition.
--- OUTSIDE RECORDS SUMMARY | 2020-02-20 14:54 | XMS REPORT ---
:1945 Author Organization Formerly [facility] Address [facility] [address] [place] [address] Care Team Providers Name Role Phone NATALYA Kamara Primary Care Physician Unavailable Anh Attending Clinician Unavailable Juan C Attending Clinician Unavailable Juan C Attending Clinician Unavailable Alonzo Attending Clinician Unavailable Sandi Saenz Unavailable Unavailable Allergies, Adverse Reactions, Alerts Allergy Allergy Status Severity Reaction(s) Onset Inactive Treating C omments Name Type Date Date Clinician Penicillin Penicillin Active Unknown 2020-0 G Potassium G 6 Potassium 00:00: 00 Levaquin Levaquin Active Unknown 2020-0 6-03 00:00: 00 QUINOLONES Miscellane Active Unknown <Not 2020-0 ous Supplied> 5-20 allergy (Unknown) 00:00: 00 PENICILLINS Allergy Active 2018-0 7-16 00:00: 00 Levofloxaci Allergy Active 2018-0 n 7-16 00:00: 00 LEVOFLOXACI Drug Inactive U Itching 2018-0 N allergy 6-19 00:00: 00 PENICILLINS Miscellane Inactive U Tongue 2018-0 ous swelling 6-19 allergy 00:00: 00 Medications Ordered Filled Start Stop Current Ordering Indication Dosage Frequency Signature Comments Components Medication Medication Date Date Medication? Clinician (SIG) Name Name oxycodone-a 2019- 2020- No 1 oxycodone- cetaminophe 0-07 10-07 acetaminop n 5-325 mg 00:00: 00:00 hen 5-325 oral tablet 00 :00 mg oral tablet oxycodone-a 2020-0 2020- No 1 oxycodone- cetaminophe 9-08 09-08 acetaminop n 7.5-325 00:00: 00:00 hen mg oral 00 :00 7.5-325 mg tablet oral tablet oxycodone-a 2019- No 1 oxycodone- cetaminophe 7-09 07-09 acetaminop n 7.5-325 00:00: 00:00 hen mg oral 00 :00 7.5-325 mg tablet oral tablet oxycodone-a 2019- No 1 oxycodone- cetaminophe 6-10 07-10 acetaminop n 7.5-325 00:00: 00:00 hen mg oral 00 :00 7.5-325 mg tablet oral tablet oxycodone-a No 1 oxycodone- cetaminophe 5-13 05-13 acetaminop n 7.5-325 00:00: 00:00 hen mg oral 00 :00 7.5-325 mg tablet oral tablet oxycodone-a 2019- No 1 oxycodone- cetaminophe 4-15 04-15 acetaminop n 7.5-325 00:00: 00:00 hen mg oral 00 :00 7.5-325 mg tablet oral tablet oxycodone 5 2019- No 1 oxycodone mg oral 3-18 04-17 5 mg oral tablet 00:00: 00:00 tablet 00 :00 oxycodone-a 2019- No 1 oxycodone- cetaminophe 2-19 03-20 acetaminop n 7.5-325 00:00: 00:00 hen mg oral 00 :00 7.5-325 mg tablet oral tablet oxycodone 5 2019- No 1 oxycodone mg oral 1-21 02-20 5 mg oral tablet 00:00: 00:00 tablet 00 :00 Flector 1.3 2018-04- No 1 Flector PERCENT 0-23 10-17 1.3 transdermal 00:00: 00:00 PERCENT patch 12 00 :00 transderma hour l patch 12 hour oxycodone 5 2018- No 1 oxycodone mg oral 7-25 07-25 5 mg oral tablet 00:00: 00:00 tablet 00 :00 oxycodone 5 2018- No 1 oxycodone mg oral 6-27 06-27 5 mg oral tablet 00:00: 00:00 tablet 00 :00 oxycodone 5 2019-0 2019- No 1 oxycodone mg oral 5-30 06-29 5 mg oral tablet 00:00: 00:00 tablet 00 :00 oxycodone 5 2018- No 1 oxycodone mg oral 4-30 04-30 5 mg oral tablet 00:00: 00:00 tablet 00 :00 oxycodone 5 2018- No 1 oxycodone mg oral 4-03 04-03 5 mg oral tablet 00:00: 00:00 tablet 00 :00 oxycodone 5 2018- No 1 oxycodone mg oral 3-06 04-05 5 mg oral tablet 00:00: 00:00 tablet 00 :00 oxycodone 5 2018- No 1 oxycodone mg oral 2-05 03-07 5 mg oral tablet 00:00: 00:00 tablet 00 :00 oxycodone 5 2018- No 1 oxycodone mg oral 1-02 01-02 5 mg oral tablet 00:00: 00:00 tablet 00 :00 oxycodone 5 2017-04- No 1 oxycodone mg oral 2-05 12-05 5 mg oral tablet 00:00: 00:00 tablet 00 :00 oxycodone 5 2017-04- No 1 oxycodone mg oral 1-07 12-07 5 mg oral tablet 00:00: 00:00 tablet 00 :00 gabapentin 2018- No 1 gabapentin 300 mg oral 8-13 08-08 300 mg capsule 00:00: 00:00 oral 00 :00 capsule Evzio 2 2017- No 1 Evzio 2 mg/0.4 mL 7-16 08-15 mg/0.4 mL injection 00:00: 00:00 injection auto-inject 00 :00 auto-injec or tor albuterol No 1puff(s Q4H albuterol 90 ) 90 mcg/actuati mcg/actuat on aerosol ion inhaler aerosol Inhale 1 inhaler puff every Inhale 1 4 hours by puff every inhalation 4 hours by route. inhalation route. cyanocobala No 1 Q1D cyanocobal min (vit slade (vit B-12) 500 B-12) 500 mcg mcg disintegrat disintegra ing ting tablet,subl tablet,sub ingual lingual Place [address] 1 tablet tablet every day every day by by sublingual sublingual route in route in the the morning. morning. escitalopra No 1 Q1D escitalopr m 20 mg am 20 mg tablet Take tablet 1 tablet Take 1 every day tablet by oral every day route. by oral route. eszopiclone No 1 Q1D eszopiclon 2 mg tablet e 2 mg Take 1 tablet tablet Take 1 every day tablet by oral every day route. by oral route. gabapentin No 1capsul BID gabapentin 300 mg e(s) 300 mg capsule capsule Take 1 Take 1 capsule capsule twice a day twice a by oral day by route. oral route. levothyroxi No 1 Q1D levothyrox ne 200 mcg ine 200 tablet Take mcg tablet 1 tablet Take 1 every day tablet by oral every day route. by oral route. levothyroxi No 1 Q1D levothyrox ne 50 mcg ine 50 mcg tablet Take tablet 1 tablet Take 1 every day tablet by oral every day route. by oral route. Lyrica 75 No 1capsul Q1D Lyrica 75 mg capsule e(s) mg capsule Take 1 Take 1 capsule capsule every day every day by oral by oral route. route. metoprolol No 3 Q1D metoprolol succinate succinate ER 25 mg ER 25 mg tablet,exte tablet,ext nded ended release 24 release 24 hr Take 3 hr Take 3 tablets tablets every day every day by oral by oral route at route at bedtime. bedtime. oxybutynin No 1 Q5H oxybutynin chloride 5 chloride 5 mg tablet mg tablet Take 1 Take 1 tablet tablet every 4-6 every 4-6 hours by hours by oral route oral route as as directed. directed. oxycodone 5 No 1capsul Q5H oxycodone mg capsule e(s) 5 mg Take 1 capsule capsule Take 1 every 4-6 capsule hours by every 4-6 oral route. hours by oral route. pantoprazol No 1 Q1D pantoprazo e 40 mg le 40 mg tablet,ian tablet,del yed release ayed Take 1 release tablet Take 1 every day tablet by oral every day route. by oral route. pregabalin No 1capsul Q1D pregabalin 150 mg e(s) 150 mg capsule capsule Take 1 Take 1 capsule capsule every day every day by oral by oral route. route. simvastatin No 1 Q1D simvastati 20 mg n 20 mg tablet Take tablet 1 tablet Take 1 every day tablet by oral every day route. by oral route. Spiriva No 2puff(s Q1D Spiriva Respimat ) Respimat 2.5 2.5 mcg/actuati mcg/actuat on solution ion for solution inhalation for Inhale 2 inhalation puffs every Inhale 2 day by puffs inhalation every day route. by inhalation route. Vitamin C No Vitamin C 250 mg 250 mg tablet Take tablet by oral Take by route. oral route. Problems Condition Condition Condition Status Onset Resolution Last Treatin g Comments Name Details Category Date Date Treatment Clinician Date High risk Complaint Active Dany, medication 12-15 Laneshia use 00:00: Sandi 00 Encounter Complaint Inactiv Dany, for e 10-15 Laneshia screening 00:00: Sandi for other 00 disorder Personal Complaint Inactiv Dany, history of e 7- Laneshia fall 00:00: Sandi 00 Nicotine Complaint Inactiv Dany, dependence, e 6-10 Laneshia other 00:00: Sandi tobacco 00 product, uncomplicat ed Personal Complaint Inactiv Dany, history of e 6-10 Laneshia fall 00:00: Sandi 00 Bilateral Bilateral Problem Active carotid carotid 6-03 artery artery 00:00: stenosis stenosis 00 Syncope and Syncope, Problem Active collapse unspecified 603 syncope 00:00: type 00 Mobility Complaint Active Dany, impaired 4-30 Laneshia 00:00: Sandi 00 chronic Complaint Active Dany, 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 00 Lumbar Complaint Active Dany, radiculopat 2-05 Laneshia hy 00:00: Sandi 00 Hypothyroid Hypothyroid Problem Active ism ism 11-29 00:00: 00 Hypercholes Hypercholes Problem Active terolemia terolemia 11-29 00:00: 00 Asthma Asthma Problem Active 11-29 00:00: 00 Gastroesoph Gastroesoph Problem Active ageal ageal 11-29 reflux Reflux 00:00: disease Disease 00 Irritable Irritable Problem Active bowel Bowel 11-29 syndrome Syndrome 00:00: 00 Compression Compression Problem Active 2018-0 fracture of Fracture of 8-23 thoracic Thoracic 00:00: vertebra Vertebra 00 Degenerativ Complaint Active Dany, 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 Laneshia disease of 00:00: Sandi knee, left 00 Chronic Complaint Active Dany, 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 00:00: Sandi 00 DDD Complaint Active Dany, (degenerati 7-16 Laneshia ve disc 00:00: Sandi disease), 00 lumbar History of Complaint Active Dany, knee 7-16 Laneshia replacement 00:00: Sandi procedure 00 of left knee History of Complaint Active Dany, right hip 7-16 Laneshia replacement 00:00: Sandi 00 Facet Complaint Active Dany, arthropathy 7-16 Laneshia , lumbar 00:00: Sandi 00 Scoliosis Complaint Active Dany, 7-16 Laneshia 00:00: Sandi 00 Anterolisth Complaint Active Dany, esis 7-16 Laneshia 00:00: Sandi 00 Chronic Complaint Active Dany, prescriptio 7-16 Laneshia n opiate 00:00: Sandi use 00 Restless Complaint Active Dany, leg 7-16 Laneshia syndrome 00:00: Sandi 00 Ulcerative Complaint Active Dany, Colitis 7-14 Laneshia 00:00: Sandi 00 Procedures Procedure Date / Time Performed Performing Clinician Devic e Office/outpatient Visit Est 2020-01-14 00:00:00 Acp Discuss-no Dscnmkr Docd 2020-01-14 00:00:00 Pt Falls Assess-docd Le1/yr 2020-01-14 00:00:00 Elig Clin Doc Mr Pt Not Elig Cur 2020-01-14 00:00:00 Meds Update/rev Patient screened for tobacco use 2020-01-14 00:00:00 and identified as Influenza Immunization Not Admin 2020-01-14 00:00:00 Rsn Doc Clin Bmi Doc W/i Normal Thien & No F/u 2020-01-14 00:00:00 Plan Required Office/outpatient Visit Est 2019-12-16 00:00:00 Acp Discuss-no Dscnmkr Docd 2019-12-16 00:00:00 Fall Risk Assessment Docd 2019-12-16 00:00:00 Ptfalls Assess-docd Ge2>/yr 2019-12-16 00:00:00 Elig Clin Attsts Doc M Rec Obtd 2019-12-16 00:00:00 Upd/rev Pt Meds Patient screened for tobacco use 2019-12-16 00:00:00 and identified as Bmi Doc W/i Normal Thien & No F/u 2019-12-16 00:00:00 Plan Required [facility] MED/CURRENT MED MERGE 2019-11-12 14:00:00 OFFICE/OUTPATIENT VISIT EST 2019-11-12 14:00:00 PHQ-9 Depression Screening 2019-10-16 00:00:00 (Ecuadorean) PHQ-9 Depression Screening 2019-10-16 00:00:00 (Ecuadorean) Office/outpatient Visit Est 2019-10-16 00:00:00 Acp Discuss-no Dscnmkr Docd 2019-10-16 00:00:00 Fall Risk Assessment Docd 2019-10-16 00:00:00 Ptfalls Assess-docd Ge2>/yr 2019-10-16 00:00:00 Annual Depression Screening 15 2019-10-16 00:00:00 Minutes Elig Clin Attsts Doc M Rec Obtd 2019-10-16 00:00:00 Upd/rev Pt Meds Patient screened for tobacco use 2019-10-16 00:00:00 and identified as Bmi Doc Above Normal Thien & F/u 2019-10-16 00:00:00 Plan Documented Drug test def 1-7 classes 2019-10-03 00:00:00 Individual psychotherapy for 20 2019-09-17 00:00:00 minutes Education about smoking cessation 2019-09-17 00:00:00 for greater than 10 minutes Drug screen multiple chromatography 2019-09-17 00:00:00 Office/outpatient Visit Est 2019-09-17 00:00:00 Acp Discuss-no Dscnmkr Docd 2019-09-17 00:00:00 Fall Risk Assessment Docd 2019-09-17 00:00:00 Ptfalls Assess-docd Ge2>/yr 2019-09-17 00:00:00 Documentation of current 2019-09-17 00:00:00 medications Elig Clin Attsts Doc M Rec Obtd 2019-09-17 00:00:00 Upd/rev Pt Meds Pain Assess Doc Pos Using Standard 2019-09-17 00:00:00 Tool F/u Plan Bmi Doc Above Normal Thien & F/u 2019-09-17 00:00:00 Plan Documented Patient screened for tobacco use 2019-09-17 00:00:00 and identified as EXTRACRANIAL STUDY 2019-09-10 00:00:00 Office/outpatient Visit Est 2019-08-20 00:00:00 [facility] MED/CURRENT MED MERGE 2019-08-14 13:00:00 OFFICE/OUTPATIENT VISIT EST 2019-08-14 13:00:00 Office/outpatient Visit Est 2019-07-23 00:00:00 Acp Discuss-no Dscnmkr Docd 2019-07-23 00:00:00 Fall Risk Assessment Docd 2019-07-23 00:00:00 Ptfalls Assess-docd Ge2>/yr 2019-07-23 00:00:00 Elig Clin Attsts Doc M Rec Obtd 2019-07-23 00:00:00 Upd/rev Pt Meds Pain Assess Doc Pos Using Standard 2019-07-23 00:00:00 Tool F/u Plan Bmi Doc Above Normal Thien & F/u 2019-07-23 00:00:00 Plan Documented Patient screened for tobacco use 2019-07-23 00:00:00 and identified as Office/outpatient Visit Est 2019-06-25 00:00:00 Acp Discuss-no Dscnmkr Docd 2019-06-25 00:00:00 Fall Risk Assessment Docd 2019-06-25 00:00:00 Ptfalls Assess-docd Ge2>/yr 2019-06-25 00:00:00 Elig Clin Attsts Doc M Rec Obtd 2019-06-25 00:00:00 Upd/rev Pt Meds Pain Assess Doc Pos Using Standard 2019-06-25 00:00:00 Tool F/u Plan Bmi Doc Above Normal Thien & F/u 2019-06-25 00:00:00 Plan Documented Patient screened for tobacco use 2019-06-25 00:00:00 and identified as OFFICE/OUTPATIENT VISIT EST 2019-06-17 11:15:00 Office/outpatient Visit Est 2019-05-28 00:00:00 Acp Discuss-no Dscnmkr Docd 2019-05-28 00:00:00 Fall Risk Assessment Docd 2019-05-28 00:00:00 Ptfalls Assess-docd Ge2>/yr 2019-05-28 00:00:00 Elig Clin Attsts Doc M Rec Obtd 2019-05-28 00:00:00 Upd/rev Pt Meds Pain Assess Doc Pos Using Standard 2019-05-28 00:00:00 Tool F/u Plan Bmi Doc Above Normal Thien & F/u 2019-05-28 00:00:00 Plan Documented Patient screened for tobacco use 2019-05-28 00:00:00 and identified as OFFICE/OUTPATIENT VISIT EST 2019-04-29 15:15:00 OFFICE/OUTPATIENT VISIT EST 2019-01-07 13:15:00 BEHAV CHNG SMOKING 3-10 MIN 2019-01-07 13:15:00 Office/outpatient Visit Est 2018-10-31 00:00:00 Acp Discuss-no Dscnmkr Docd 2018-10-31 00:00:00 Pt Falls Assess-docd Le1/2018-10-31 00:00:00 Elig Clin Attsts Doc M Rec Obtd 2018-10-31 00:00:00 Upd/rev Pt Meds Pain Assess Doc Pos Using Standard 2018-10-31 00:00:00 Tool F/u Plan Bmi Doc Above Normal Thien & F/u 2018-10-31 00:00:00 Plan Documented Patient screened for tobacco use 2018-10-31 00:00:00 and identified as Office/outpatient Visit Est 2018-10-03 00:00:00 Acp Discuss-no Dscnmkr Docd 2018-10-03 00:00:00 Fall Risk Assessment Docd 2018-10-03 00:00:00 Ptfalls Assess-docd Ge2>/yr 2018-10-03 00:00:00 Elig Clin Attsts Doc M Rec Obtd 2018-10-03 00:00:00 Upd/rev Pt Meds Pain Assess Doc Pos Using Standard 2018-10-03 00:00:00 Tool F/u Plan Bmi Doc Above Normal Thien & F/u 2018-10-03 00:00:00 Plan Documented Patient screened for tobacco use 2018-10-03 00:00:00 and identified as OFFICE/OUTPATIENT VISIT EST 2018-09-30 13:15:[address] Id Meth P Day 2018-09-11 00:00:00 1-7 Drug Cl Drug Test Prsmv Chem Anlyzr 2018-09-05 00:00:00 Office/outpatient Visit Est 2018-09-05 00:00:00 Acp Discuss-no Dscnmkr Docd 2018-09-05 00:00:00 Pt Falls Assess-docd Le/2018-09-05 00:00:00 Elig Clin Attsts Doc M Rec Obtd 2018-09-05 00:00:00 Upd/rev Pt Meds Pain Assess Doc Pos Using Standard 2018-09-05 00:00:00 Tool F/u Plan Bmi Doc Above Normal Thien & F/u 2018-09-05 00:00:00 Plan Documented Patient screened for tobacco use 2018-09-05 00:00:00 and identified as OFFICE/OUTPATIENT VISIT EST 2018-08-26 15:45:00 Office/outpatient Visit Est 2018-08-06 00:00:00 Acp Discuss-no Dscnmkr Docd 2018-08-06 00:00:00 Fall Risk Assessment Docd 2018-08-06 00:00:00 Ptfalls Assess-docd Ge2>/yr 2018-08-06 00:00:00 Pain Assess Doc Pos Using Standard 2018-08-06 00:00:00 Tool F/u Plan Bmi Doc Above Normal Thien & F/u 2018-08-06 00:00:00 Plan Documented Patient screened for tobacco use 2018-08-06 00:00:00 and identified as Office/outpatient Visit Est 2018-07-10 00:00:00 Acp Discuss-no Dscnmkr Docd 2018-07-10 00:00:00 Pt Falls Assess-docd Le/2018-07-10 00:00:00 Elig Clin Attsts Doc M Rec Obtd 2018-07-10 00:00:00 Upd/rev Pt Meds Pain Assess Doc Pos Using Standard 2018-07-10 00:00:00 Tool F/u Plan Bmi Doc Above Normal Thien & F/u 2018-07-10 00:00:00 Plan Documented Patient screened for tobacco use 2018-07-10 00:00:00 and identified as Lumbar Interlaminar Epidural 2018-06-27 00:00:00 Steroid Injection Njx dx/ther sbst intrlmnr lmbr/sac 2018-06-27 00:00:00 w/o img gdn Injection of triamcinolone 2018-06-27 00:00:00 acetonide 40 mg/mL Office/outpatient Visit Est 2018-06-12 00:00:00 Acp Discuss-no Dscnmkr Docd 2018-06-12 00:00:00 Fall Risk Assessment Docd 2018-06-12 00:00:00 Ptfalls Assess-docd Ge2>/yr 2018-06-12 00:00:00 Elig Clin Attsts Doc M Rec Obtd 2018-06-12 00:00:00 Upd/rev Pt Meds Pain Assess Doc Pos Using Standard 2018-06-12 00:00:00 Tool F/u Plan Bmi Doc Above Normal Thien & F/u 2018-06-12 00:00:00 Plan Documented Patient screened for tobacco use 2018-06-12 00:00:00 and identified as OFFICE/OUTPATIENT VISIT EST 2018-05-27 15:30:00 Drug test def 1-7 classes 2018-05-20 00:00:00 Office/outpatient Visit Est 2018-05-14 00:00:00 Acp Discuss-no Dscnmkr Docd 2018-05-14 00:00:00 Pt Falls Assess-docd Le2018-05-14 00:00:00 Drug screen multiple chromatography 2018-05-14 00:00:00 Elig Clin Attsts Doc M Rec Obtd 2018-05-14 00:00:00 Upd/rev Pt Meds Pain Assess Doc Pos Using Standard 2018-05-14 00:00:00 Tool F/u Plan Influenza Immunization Not Admin 2018-05-14 00:00:00 Rsn Doc Clin Patient screened for tobacco use 2018-05-14 00:00:00 and identified as Bmi Doc Above Normal Thien & F/u 2018-05-14 00:00:00 Plan Documented Office/outpatient Visit Est 2018-04-10 00:00:00 Acp Discuss-no Dscnmkr Docd 2018-04-10 00:00:00 Pt Falls Assess-docd Le2018-04-10 00:00:00 Pain Assess Doc Pos Using Standard 2018-04-10 00:00:00 Tool F/u Plan Patient screened for tobacco use 2018-04-10 00:00:00 and identified as Scr Clin Depr Doc Pos & F/u Plan Is 2018-04-10 00:00:00 Documented Bmi Doc Above Normal Thien & F/u 2018-04-10 00:00:00 Plan Documented Influenza Immunization 2018-04-10 00:00:00 Admin/previously Received Drug Test Prsmv Chem Anlyzr 2018-03-13 00:00:00 Acp Discuss-no Dscnmkr Docd 2018-03-13 00:00:00 Pt Falls Assess-docd Le2018-03-13 00:00:00 Office/outpatient Visit Est 2018-03-13 00:00:00 Elig Clin Attsts Doc M Rec Obtd 2018-03-13 00:00:00 Upd/rev Pt Meds Pain Assess Doc Pos Using Standard 2018-03-13 00:00:00 Tool F/u Plan Influenza Immunization Not Admin 2018-03-13 00:00:00 Rsn Doc Clin Bmi Doc Above Normal Thien & F/u 2018-03-13 00:00:00 Plan Documented Patient screened for tobacco use 2018-03-13 00:00:00 and identified as OFFICE/OUTPATIENT VISIT EST 2018-02-21 15:15:00 Drug test def 1-7 classes 2018-02-18 00:00:00 Drug screen multiple chromatography 2018-02-13 00:00:00 Office/outpatient Visit Est 2018-02-13 00:00:00 Acp Discuss-no Dscnmkr Docd 2018-02-13 00:00:00 Pt Falls Assess-docd Le2018-02-13 00:00:00 Elig Clin Attsts Doc M Rec Obtd 2018-02-13 00:00:00 Upd/rev Pt Meds Pain Assess Doc Pos Using Standard 2018-02-13 00:00:00 Tool F/u Plan Influenza Immunization Not Admin 2018-02-13 00:00:00 Rsn Doc Clin Bmi Doc Above Normal Thien & F/u 2018-02-13 00:00:00 Plan Documented Patient screened for tobacco use 2018-02-13 00:00:00 and identified as OFFICE/OUTPATIENT VISIT EST 2018-01-21 15:30:00 OFFICE/OUTPATIENT VISIT EST 2017-12-31 15:15:00 epidural steroid injection, lumbar 2017-11-29 00:00:00 (PROC) OFFICE/OUTPATIENT VISIT NEW 2017-10-12 13:45:00 OFFICE/OUTPATIENT VISIT NEW 2017-09-25 14:45:00 Knee Replacement 2017-05-09 00:00:00 AORTIC ANEURYSM<5CM DIAM CT 2016-08-22 00:00:00 Hip Replacement 2015-07-09 00:00:00 Results Test Description Test Time Test Comments Text Results Atomic Results Result Comments T4, FREE 2020-02-12 00:00:00 1.7 T3, FREE 2020-02-12 00:00:00 2.3 TSH 2020-02-12 00:00:00 0.41 TSH 2019-12-22 08:39:00 0.15 LIPID PANEL, STANDARD 2019-12-22 08:39:00 Test Item Value Reference Range Comments HDL CHOLESTEROL (test code = 33379223) 50 mg/dL > OR = 50 CHOL/HDLC RATIO (test code = 55840202) 2.1 (calc) <5.0 TRIGLYCERIDES (test code = 82499392) 74 mg/dL <150 CHOLESTEROL, TOTAL (test code = 32008552) 107 mg/dL <200 NON HDL CHOLESTEROL (test code = 47226956) 57 mg/dL (calc) <130 LDL-CHOLESTEROL (test code = 00315520) 42 mg/dL (calc) T4, [id number] 08:39:001.7T3, [id number] 08:39:002.8T3, [id number] 00:00:[id number] 00:00:0037.37T4, [id number] 00:00:001.3CBC (INCLUDES DIFF/PLT)2019-06-17 00:00:00 Test Item Value Reference Range Comments RED BLOOD CELL COUNT (test code = 74839108) 3.31 Million/uL 3.80 -5.10 MPV (test code = 67296729) 10.4 fL 7.5-12.5 ABSOLUTE LYMPHOCYTES (test code = 90506421) 1357 cells/uL 850- 3900 ABSOLUTE BASOPHILS (test code = 73972005) 41 cells/uL 0-200 ABSOLUTE EOSINOPHILS (test code = 16398069) 307 cells/uL 15-5 00 ABSOLUTE NEUTROPHILS (test code = 54693364) 3695 cells/uL 1500 -7800 LYMPHOCYTES (test code = 58890450) 23.4 % HEMOGLOBIN (test code = 88311840) 10.9 g/dL 11.7-15.5 MCHC (test code = 63866513) 33.7 g/dL 32.0-36.0 MCV (test code = 89671501) 97.6 fL 80.0-100.0 RDW (test code = 09072801) 11.8 % 11.0-15.0 ABSOLUTE MONOCYTES (test code = 15794104) 400 cells/uL 200-95 0 BASOPHILS (test code = 74721569) 0.7 % NEUTROPHILS (test code = 80976804) 63.7 % MONOCYTES (test code = 30416790) 6.9 % MCH (test code = 45968021) 32.9 pg 27.0-33.0 WHITE BLOOD CELL COUNT (test code = 5.8 Thousand/uL 3.8-10.8 09855599) PLATELET COUNT (test code = 02521657) 208 Thousand/uL 140-400 EOSINOPHILS (test code = 63652388) 5.3 % HEMATOCRIT (test code = 54673243) 32.3 % 35.0-45.0 COMPREHENSIVE METABOLIC [id number] 00:00:00 Test Item Value Reference Range Comments BILIRUBIN, TOTAL (test code = 0.4 mg/dL 0.2-1.2 71138201) UREA NITROGEN (BUN) (test code = 22 mg/dL 7-25 62430477) CHLORIDE (test code = 58554696) 104 mmol/L 98-110 PROTEIN, TOTAL (test code = 16843840) 6.0 g/dL 6.1-8.1 GLUCOSE (test code = 93738240) 94 mg/dL 65-139 SODIUM (test code = 30625809) 138 mmol/L 135-146 eGFR (test code = 85 mL/min/1.73m2 > OR = 60 33634445) AST (test code = 15105597) 33 U/L 10-35 CREATININE (test code = 36170825) 0.80 mg/dL 0.60-0.93 CALCIUM (test code = 99175119) 9.2 mg/dL 8.6-10.4 GLOBULIN (test code = 70899083) 2.4 g/dL (calc) 1.9-3.7 ALBUMIN (test code = 25238339) 3.6 g/dL 3.6-5.1 POTASSIUM (test code = 99123634) 3.9 mmol/L 3.5-5.3 BUN/CREATININE RATIO (test code = NOT APPLICABLE (calc) 6-22 ) CARBON DIOXIDE (test code = 92830167) 26 mmol/L 20-32 ALT (test code = 36769153) 18 U/L 6-29 ALKALINE PHOSPHATASE (test code = 115 U/L 37-153 53821337) ALBUMIN/GLOBULIN RATIO (test code = 1.5 (calc) 1.0-2.5 61506493) eGFR NON-AFR. TOGOLESE (test code = 73 mL/min/1.73m2 > OR = 60 86942521) [id number] 00:00:004.77T3, [id number] 00:00:001.8T4, [id number] 00:00:001.2CBC (INCLUDES DIFF/PLT)2019-01-24 00:00:00 Test Item Value Reference Range Comments PLATELET COUNT (test code = 25399669) 158 Thousand/uL 140-400 HEMOGLOBIN (test code = 01556320) 12.9 g/dL 11.7-15.5 ABSOLUTE LYMPHOCYTES (test code = 91277715) 1604 cells/uL 850- 3900 NEUTROPHILS (test code = 48660681) 66.4 % HEMATOCRIT (test code = 48086687) 37.3 % 35.0-45.0 LYMPHOCYTES (test code = 90604915) 24.3 % RED BLOOD CELL COUNT (test code = 32770043) 3.90 Million/uL 3.80 -5.10 EOSINOPHILS (test code = 52226281) 2.3 % ABSOLUTE MONOCYTES (test code = 70096148) 409 cells/uL 200-95 0 MCH (test code = 26170001) 33.133.1 pg 27.0-33.0 ABSOLUTE EOSINOPHILS (test code = 24260267) 152 cells/uL 15-5 00 MCHC (test code = 76906523) 34.6 g/dL 32.0-36.0 MPV (test code = 17112779) 10.2 fL 7.5-12.5 BASOPHILS (test code = 30445875) 0.8 % MONOCYTES (test code = 27604310) 6.2 % RDW (test code = 41332825) 12.1 % 11.0-15.0 ABSOLUTE NEUTROPHILS (test code = 26704354) 4382 cells/uL 1500 -7800 ABSOLUTE BASOPHILS (test code = 45278017) 53 cells/uL 0-200 WHITE BLOOD CELL COUNT (test code = 6.6 Thousand/uL 3.8-10.8 [id number]) MCV (test code = 72204152) 95.6 fL 80.0-100.0 [id number] 00:00:000.250.25IRON, TIBC AND FERRITIN [id number] 00:00:00 Test Item Value Reference Range Comments % SATURATION (test code = 16440869) 31 % (calc) 16-45 IRON, TOTAL (test code = 35405540) 100 mcg/dL 45-160 FERRITIN (test code = 36763946) 67 ng/mL 16-288 IRON BINDING CAPACITY (test code = 321 mcg/dL (calc) 250-450 [id number]) T4, [id number] 00:00:001.51.5CBC WITH [id number] 13:15:00 Test Item Value Reference Range Comments HEMATOCRIT (test code = HCT) 32.2 % 36.0-47.0 RED CELL DISTRIBUTION WIDTH (test code = RDW) 13.1 % 11 .5-14.0 LYMPHOCYTES % (AUTO) (test code = LY%) 30.7 % 13-45 PLATELET COUNT (test code = PLT) 162 10 3/uL 150-450 WHITE BLOOD COUNT (test code = WBC) 5.3 10 3/uL 4.0-10.5 MEAN CORPUSCULAR VOLUME (test code = MCV) 95 fl 80-97 MONOCYTES % (AUTO) (test code = MO%) 8.3 % 3-13 RED BLOOD COUNT (test code = RBC) 3.39 10 6/uL 3.72-5.28 BASOPHILS % (AUTO) (test code = BA%) 0.7 % 0-2 EOSINOPHILS % (AUTO) (test code = EO%) 2.4 % 0-6 MEAN CORPUSCULAR HEMOGLOBIN (test code = MCH) 33.7 pg 27 .0-33.4 ABSOLUTE EOSINOPHILS # (AUTO) (test code = EO#) 0.1 10 3/uL 0.0-0.6 MEAN CORPUSCULAR HGB CONC (test code = MCHC) 35.4 g/dL 32. 0-36.0 SEGMENTED NEUTROPHILS % (AUTO) (test code = 57.9 % 42-7 8 SEG%) ABSOLUTE MONOCYTES (AUTO) (test code = MO#) 0.4 10 3/uL 0.1- 1.4 ABSOLUTE LYMPHOCYTES (AUTO) (test code = LY#) 1.6 10 3/uL 0. 5-4.7 ABSOLUTE NEUT (AUTO) (test code = NE#) 3.1 10 3/uL 1.7-8.2 ABSOLUTE BASOPHILS # (AUTO) (test code = BA#) 0.0 10 3/uL 0. 0-0.2 HEMOGLOBIN (test code = HGB) 11.4 g/dL 12.0-15.5 COMPREHENSIVE METABOLIC PANEL\S\[id number] 14:58:00 Test Item Value Reference Range Comments ANION GAP (test code = ANION) 6 5-19 EGFR, (test code = GFRAA) 51 >60 CHLORIDE (test code = CL-1) 110 mmol/L 98-107 CREATININE RESULT (test code = CREA) 1.25 mg/dL 0.52-1.25 SODIUM (test code = NA) 141.0 mmol/L 137-145 EGFR,NON (test code = GFRN) 42 >60 POTASSIUM (test code = K) 4.0 mmol/L 3.6-5.0 ASPARTATE AMINO TRANSFERASE (test code = AST) 19 U/L 14 -36 ALANINE AMINOTRANSFERASE (test code = ALT) 18 U/L 9-52 CARBON DIOXIDE (test code = CO2) 25 mmol/L 22-30 GLUCOSE (test code = GLU) 94 mg/dL 75-110 CALCIUM (test code = CA) 9.8 mg/dL 8.4-10.2 BILIRUBIN,DIRECT (test code = BC) 0.2 mg/dL 0.0-0.4 BLOOD UREA NITROGEN (test code = BUN) 49 mg/dL 7-20 TOTAL PROTEIN (test code = TP) 6.3 g/dL 6.3-8.2 ALKALINE PHOSPHATASE (test code = ALKP) 94 U/L 38-126 BILIRUBIN,TOTAL (test code = TBIL) 0.4 mg/dL 0.2-1.3 ALBUMIN (test code = ALB) 3.5 g/dL 3.5-5.0 CBC WITH DIFF\S\[id number] 14:58:00 Test Item Value Reference Range Comments ABSOLUTE LYMPHOCYTES (AUTO) (test code = LY#) 1.8 10 3/uL 0. 5-4.7 SEGMENTED NEUTROPHILS % (AUTO) (test code = 62.3 % 42-7 8 SEG%) MEAN CORPUSCULAR HGB CONC (test code = MCHC) 35.1 g/dL 32. 0-36.0 PLATELET COUNT (test code = PLT) 158 10 3/uL 150-450 WHITE BLOOD COUNT (test code = WBC) 6.2 10 3/uL 4.0-10.5 ABSOLUTE EOSINOPHILS # (AUTO) (test code = EO#) 0.1 10 3/uL 0.0-0.6 LYMPHOCYTES % (AUTO) (test code = LY%) 29.4 % 13-45 HEMATOCRIT (test code = HCT) 34.9 % 36.0-47.0 MONOCYTES % (AUTO) (test code = MO%) 5.3 % 3-13 ABSOLUTE NEUT (AUTO) (test code = NE#) 3.8 10 3/uL 1.7-8.2 ABSOLUTE BASOPHILS # (AUTO) (test code = BA#) 0.0 10 3/uL 0. 0-0.2 BASOPHILS % (AUTO) (test code = BA%) 0.6 % 0-2 MEAN CORPUSCULAR HEMOGLOBIN (test code = MCH) 33.0 pg 27 .0-33.4 RED CELL DISTRIBUTION WIDTH (test code = RDW) 13.6 % 11 .5-14.0 RED BLOOD COUNT (test code = RBC) 3.71 10 6/uL 3.72-5.28 ABSOLUTE MONOCYTES (AUTO) (test code = MO#) 0.3 10 3/uL 0.1- 1.4 MEAN CORPUSCULAR VOLUME (test code = MCV) 94 fl 80-97 EOSINOPHILS % (AUTO) (test code = EO%) 2.4 % 0-6 HEMOGLOBIN (test code = HGB) 12.3 g/dL 12.0-15.5 FREE T4 (FREE THYROXINE)\S\[id number] 14:58:00 Test Item Value Reference Range Comments FREE T4 (FREE THYROXINE) (test code = FT4E) 2.17 ng/dL 0.78 -2.19 FREE T3\S\[id number] 14:58:00 Test Item Value Reference Range Comments FREE T3 (test code = FT3E) 2.70 pg/mL 2.77-5.27 Thyroxine (T4) Free, Direct, S\S\2017-12-31 16:42:00 Test Item Value Reference Range Comments T4,Free(Direct) (test code = 3024-7) 2.47 ng/dL 0.82-1.77 TSH\S\2017-12-31 16:42:00 Test Item Value Reference Range Comments TSH (test code = 84929-8) 0.065 uIU/mL 0.450-4.500 Assessments Condition Name Status Diagnosis Date Treating Clinici an Chronic pain syndrome Active Dany, L aneshia Sandi High risk medication use Active Dany , Laneshia Sandi Lumbar radiculopathy Active Dany, La scott Sandi DDD (degenerative disc disease), Active Dany, Laneshia Sandi lumbar Scoliosis Active Dany, Laneshi a Sandi Anterolisthesis Active Dany, Laneshi a Sandi Lumbar radiculopathy Active Dany, La scott Sandi DDD (degenerative disc disease), Active Dany, Laneshia Sandi lumbar Scoliosis Active Dany, Laneshi a Sandi Anterolisthesis Active Dany, Laneshi a Sandi Chronic pain syndrome Active Dany, L aneshia Sandi High risk medication use Active Dany , Laneshia Asndi Essential (primary) hypertension Active Hypothyroidism, unspecified Active Overactive bladder Active Unspecified urinary incontinence Active Chronic pain syndrome Active Dany, L aneshia Sandi Encounter for screening for other Active Dany, Laneshia Sandi disorder Personal history of fall Active Dany , Laneshia Sandi Mobility impaired Active Dany, Lanes hia Sandi Lumbar radiculopathy Active Adny, La scott Sandi Degenerative joint disease of Active Pa trick, Laneshia Sandi knee, left DDD (degenerative disc disease), Active Dany, Laneshia Sandi lumbar History of knee replacement Active Patr ick, Laneshia Sandi procedure of left knee History of right hip replacement Active Dany, Laneshia Sandi Scoliosis Active Dany, Laneshi a Sandi Anterolisthesis Active Dany, Laneshi a Sandi Chronic prescription opiate use Active Dany, Laneshia Sandi Restless leg syndrome Active Dany, L aneshia Sandi Chronic pain syndrome Active Dany, L aneshia Sandi Mobility impaired Active Dany, Lanes hia Sandi Lumbar radiculopathy Active Dany, La scott Sandi Degenerative joint disease of Active Pa trick, Laneshia Sandi knee, left DDD (degenerative disc disease), Active Dany, Laneshia Sandi lumbar History of knee replacement Active Patr ick, Laneshia Sandi procedure of left knee History of right hip replacement Active Dany, Laneshia Sandi Scoliosis Active Dany, Laneshi a Sandi Anterolisthesis Active Dany, Laneshi a Sandi Chronic prescription opiate use Active Dany, Laneshia Sandi Restless leg syndrome Active Dany, L aneshia Sandi Chronic pain syndrome Active Dany, L aneshia Sandi Nicotine dependence, other Active Patri ck, Laneshia Sandi tobacco product, uncomplicated Personal history of fall Active Dany , Laneshia Sandi Mobility impaired Active Dany, Lanes hia Sandi Lumbar radiculopathy Active Dany, La scott Sandi Degenerative joint disease of Active Pa trick, Laneshia Sandi knee, left DDD (degenerative disc disease), Active Dany, Laneshia Sandi lumbar History of knee replacement Active Patr ick, Laneshia Sandi procedure of left knee History of right hip replacement Active Dany, Laneshia Sandi Scoliosis Active Dany, Laneshi a Sandi Anterolisthesis Active Dany, Laneshi a Sandi Chronic prescription opiate use Active Dany, Laneshia Sandi Restless leg syndrome Active Dany, L aneshia Sandi - Syncope, unspecified syncope Active P Ranjit STOREY type R55 - Bilateral carotid artery Active PATRanjit RAMÍREZ stenosis I65.23 Anterolisthesis Active Dany, Laneshi a Sandi Chronic prescription opiate use Active Dany, Laneshia Sandi Restless leg syndrome Active Dany, L aneshia Sandi Chronic pain syndrome Active Dany, L aneshia Sandi Mobility impaired Active Dany, Lanes hia Sandi Lumbar radiculopathy Active Dany, La scott Sandi Degenerative joint disease of Active Pa trick, Laneshia Sandi knee, left DDD (degenerative disc disease), Active Dany, Laneshia Sandi lumbar History of knee replacement Active Patr ick, Laneshia Sandi procedure of left knee History of right hip replacement Active Dany, Laneshia Sandi Scoliosis Active Dany, Laneshi a Sandi Peripheral vascular disease, Active unspecified Venous insufficiency (chronic) Active (peripheral) Lymphedema, not elsewhere Active classified Obstructive sleep apnea (adult) Active (pediatric) Chronic pain syndrome Active Dany, L aneshia Sandi Mobility impaired Active Dany, Lanes hia Sandi Lumbar radiculopathy Active Dany, La csott Sandi Degenerative joint disease of Active Pa trick, Laneshia Sandi knee, left DDD (degenerative disc disease), Active Dany, Laneshia Sandi lumbar History of knee replacement Active Patr ick, Laneshia Sandi procedure of left knee History of right hip replacement Active Dany, Laneshia Snadi Scoliosis Active Dany, Laneshi a Sandi Anterolisthesis Active Dany, Laneshi a Sandi Chronic prescription opiate use Active Dany, Laneshia Sandi Restless leg syndrome Active Dany, L aneshia Sandi Chronic pain syndrome Active Dany, L aneshia Sandi Mobility impaired Active Dany, Lanes hia Sandi Lumbar radiculopathy Active Dany, La scott Sandi Degenerative joint disease of Active Pa trick, Laneshia Sandi knee, left DDD (degenerative disc disease), Active Dany, Laneshia Sandi lumbar History of knee replacement Active Patr ick, Laneshia Sandi procedure of left knee History of right hip replacement Active Dany, Laneshia Sandi Scoliosis Active Dany, Laneshi a Sandi Anterolisthesis Active Dany, Laneshi a Sandi Chronic prescription opiate use Active Dany, Laneshia Sandi Restless leg syndrome Active Dany, L aneshia Sandi Hypothyroidism, unspecified Active Essential (primary) hypertension Active Contusion of other part of head, Active initial encounter Unspecified injury of head, Active initial encounter Chronic pain syndrome Active Dany, L aneshia Sandi Mobility impaired Active Dany, Lanes hia Sandi Lumbar radiculopathy Active Dany, La scott Sandi Degenerative joint disease of Active Pa trick, Laneshia Sandi knee, left DDD (degenerative disc disease), Active Dany, Laneshia Sandi lumbar History of knee replacement Active Patr ick, Laneshia Sandi procedure of left knee History of right hip replacement Active Dany, Laneshia Sandi Scoliosis Active Jamir Saenz Sandi Anterolisthesis Active Dany Huanmina russ Sandi Chronic prescription opiate use Active Huan Saenzminaruss Sandi Restless leg syndrome Active Duyen Saenz Essential (primary) hypertension Active Obstructive sleep apnea (adult) Active (pediatric) Hypothyroidism, unspecified Active Unspecified asthma, uncomplicated Active Essential (primary) hypertension Active Hypothyroidism, unspecified Active Major depressive disorder, single Active episode, unspecified Chronic pain syndrome Active Essential (primary) hypertension Active Major depressive disorder, single Active episode, unspecified Cough Active Body mass index (BMI) 24.0-24.9, Active adult Mixed incontinence Active Major depressive disorder, single Active episode, unspecified Essential (primary) hypertension Active Other intervertebral disc Active degeneration, lumbar region Mixed incontinence Active Hypothyroidism, unspecified Active Chronic pain syndrome Active Essential (primary) hypertension Active Edema, unspecified Active Essential (primary) hypertension Active Hypothyroidism, unspecified Active Chronic pain syndrome Active Essential (primary) hypertension Active Edema, unspecified Active Hypothyroidism, unspecified Active Mixed incontinence Active Obstructive sleep apnea (adult) Active (pediatric) Cough Active Mixed incontinence Active Essential (primary) hypertension Active Chronic pain syndrome Active 2017-12-06 14:42:39 Low back pain Active 2017-12-06 14:42:39 Degeneration of lumbar Active 2017-12-06 14:42:39 intervertebral disc Lumbar facet joint pain Active 2017-12-06 14:42:39 Lumbosacral spondylosis without Active 2017-12-06 14:42 :39 myelopathy Lumbar disc prolapse with Active 2017-12-06 14:42:39 radiculopathy Lumbar radiculopathy Active 2017-12-06 14:42:39 Medication monitoring Active 2017-12-06 14:42:39 Cigarette smoker Active 2017-12-06 14:42:39 Chronic pain syndrome Active 2017-11-29 10:49:37 Low back pain Active 2017-11-29 10:49:37 Degeneration of lumbar Active 2017-11-29 10:49:37 intervertebral disc Lumbar facet joint pain Active 2017-11-29 10:49:37 Lumbosacral spondylosis without Active 2017-11-29 10:49 :37 myelopathy Lumbar disc prolapse with Active 2017-11-29 10:50:05 radiculopathy Lumbar radiculopathy Active 2017-11-29 11:06:06 Medication monitoring Active 2017-11-29 10:38:07 Cigarette smoker Active 2017-11-29 11:09:18 Noninfective gastroenteritis and Active colitis, unspecified Abnormal weight loss Active Anorexia Active Body mass index (BMI) 26.0-26.9, Active adult Obstructive sleep apnea (adult) Active (pediatric) Epilepsy, unsp, not intractable, Active without status epilepticus Other ulcerative colitis with Active unspecified complications Cellulitis of right lower limb Active Encounters Start End Encounter Admission Attending Care Care Encounter Date/Time Date/Time Type Type Clinicians Facility Department ID 2020-03-10 2020-03-10 [facility] [place] 1148 [id number] 00:00:00 00:00:00 [facility] Pr[facility]ek TRUJILLO 2020-03-10 2020-03-10 [facility] [place] 1148 [id number] 00:00:00 00:00:00 [facility] Prateek TRUJILOL 2020-03-10 2020-03-10 [facility] [place] 1148 613 00:00:00 00:00:00 [facility] Prateek TRUJILLO 2020-01-14 2020-01-14 Office/outp Linden Linden [id number] 00:00:00 00:00:00 atient Visit Est 2019-12-16 2019-12-16 Office/outp Linden Linden [id number] 00:00:00 00:00:00 atient Visit Est 2019-11-12 2019-11-12 [facility] 81 [id number] 14:00:00 14:00:00 [facility] Children [id number] s [id number] and [id number] Multispecial Clinic, 2019-10-16 2019-10-16 Office/outp Casco Rodrigo [id number] 00:00:00 00:00:00 atient Visit Est 2019-09-17 2019-09-17 Education Abida Tai [id number] 00:00:00 00:00:00 about [id number] smoking cessation for greater than 10 minutes 2019-09-17 2019-09-17 Outpatient aJime barber [id number] 00:00:00 00:00:00 e 2019-09-10 2019-09-10 [facility] [place] 1147 [id number] 00:00:00 00:00:00 [facility] [place] 2019-09-10 2019-09-10 [facility] [id number] 00:00:00 00:00:00 [facility] 2019-08-20 2019-08-20 Office/outp [facility] [id number] 00:00:00 00:00:00 atient [id number] Visit Est 2019-08-14 2019-08-14 [facility] 25 [id number] 13:00:00 13:00:00 [facility] [id number] s [id number] and [id number] Multispecial ty Clinic, 2019-07-23 2019-07-23 Office/outp Proctor Abida [id number] 00:00:00 00:00:00 atient [id number] Visit Est 2019-06-25 2019-06-25 Office/outp Proctor Abida [id number] 00:00:00 00:00:00 atient 515 515 Visit Est 2019-06-17 2019-06-17 [facility] F9 [id number] 11:15:00 11:15:00 [facility] Children [id number] s [id number] and [id number] Multispecial ty Clinic, 2019-05-28 2019-05-28 Office/outp Proctor Proctor [id number] 00:00:00 00:00:00 atient 515 515 Visit Est 2019-04-29 2019-04-29 [facility] 7E [id number] 15:15:00 15:15:00 [facility] Children [id number] s [id number] and [id number] Multispecial ty Clinic, 2019-01-07 2019-01-07 [facility] 31 [id number] 13:15:00 13:15:00 Sandra Children???s [id number] and [id number] Multispecial [id number] ty Clini 2018-10-31 2018-10-31 Office/outp Former[facility] [id number] 00:00:00 00:00:00 atient Visit Est 2018-10-03 2018-10-03 Office/outp [facility] [id number] 00:00:00 00:00:00 atient Visit Est 2018-09-30 2018-09-30 [facility] [id number] 13:15:00 13:15:00 [facility] Children [id number] s [id number] and [id number] Multispecial ty Clinic, 2018-09-05 2018-09-05 Office/outp [facility] [id number] 00:00:00 00:00:00 atient Visit Est 2018-09-05 2018-09-05 Outpatient Jaime barber [id number] 00:00:00 00:00:00 e 2018-08-26 2018-08-26 Outpatient [facility] [address] [id number] 15:45:00 15:45:00 [facility] [id number] s [id number] and [id number] Multispecial ty Clinic, 2018-08-06 2018-08-06 Office/outp Abida Tai [id number] 00:00:00 00:00:00 atient [id number] Visit Est 2018-07-10 2018-07-10 Office/outp Abida Tai [id number] 00:00:00 00:00:00 atient 515 515 Visit Est 2018-06-27 2018-06-27 Outpatient Abida Tai [id number] 00:00:00 00:00:00 144 [id number] 8532-03-06 2018-06-12 Office/outp Krysta vick [id number] 00:00:00 00:00:00 atient e Makie Visit Est [place] 2018-05-27 2018-05-27 [facility] CC [id number] 15:30:00 15:30:00 [facility] Children [id number] s [id number] and [id number] Multis[facility]ial ty [place] 2018-05-14 2018-05-14 Office/outp [facility] [id number] 00:00:00 00:00:00 atient Visit Est 2018-05-14 2018-05-14 Outpatient Jaime barber [id number] 00:00:00 00:00:00 e 2018-04-10 2018-04-10 Office/outp Abida Tai [id number] 00:00:00 00:00:00 atient [id number] Visit Est 2018-03-13 2018-03-13 Office/outp Mariama Leslie [id number] 00:00:00 00:00:00 atient Visit Est 2018-02-21 2018-02-21 [facility] F2 [id number] 15:15:00 15:15:00 [facility] Children [id number] s [id number] and [id number] [facility] [place] 2018-02-13 2018-02-13 Office/outp Abida Tai [id number] 00:00:00 00:00:00 atient 515 515 Visit Est 2018-02-13 2018-02-13 Outpatient Jaime barber [id number] 00:00:00 00:00:00 e 2018-01-21 2018-01-21 [facility] A4 [id number] 15:30:00 15:30:00 [facility] Children [id number] s [id number] and [id number] [facility] 2017-12-31 2017-12-31 [facility] AA [id number] 15:15:00 15:15:00 [facility] [id number] s [id number] and [id number] [facility] 2017-12-06 2017-12-06 Francisco Tierney [id number] 00:00:00 00:00:00 MD Shaan: [facility] [id number] [facility], [facility] [address], [place] [address], Ph. 2017-11-29 2017-11-29 Francisco Tierney [id number] 00:00:00 00:00:00 MD Shaan: [facility] [id number] [facility], [address], [place] [address], Ph. 2017-10-12 2017-10-12 Outpatient [facility] Jaime barber [id number] 13:45:00 13:45:00 Children [id number] s [id number] and [id number] [facility] [place] 2017-09-25 2017-09-25 [facility] F9 [id number] 14:45:00 14:45:00 [facility] Children [id number] s [id number] and [id number] [facility] [place] Payers Payer Name Policy Type Policy Number Effective Date Expiration D ate Medicare of [facility] [id number] Social History Smoking Status Start Date Stop Date Heavy Tobacco Smoker Smoking Status (MU) 2020-01-14 00:00:00 2020-01-14 00:00:00 Vital Signs Vital Name Observation Time Observation Value Comments temperature 2019-09-10 10:30:00 97.0 [degF] heart rate 2019-09-10 10:30:00 59 /min weight 2019-09-10 10:30:00 150 [lb_av] bmi 2019-09-10 10:30:00 24.96 kg/m2 height 2019-09-10 10:30:00 65 [in_us] respiratory rate 2019-09-10 10:30:00 15 /min blood pressure systolic 2019-09-10 10:30:00 135 mm[Hg] blood pressure diastolic 2019-09-10 10:30:00 78 mm[Hg] BP Diastolic 2017-11-29 00:00:00 95 mm[Hg] Height 2017-11-29 00:00:00 65 [in_i] BMI (Body Mass Index) 2017-11-29 00:00:00 26.6 kg/m2 BP Systolic 2017-11-29 00:00:00 160 mm[Hg] Body Weight 2017-11-29 00:00:00 160 [lb_av] Height (inches) 2020-01-14 00:00:00 65.00 Weight (lbs) 2020-01-14 00:00:00 137.00 BMI 2020-01-14 00:00:00 23 Height (inches) 2019-12-16 00:00:00 65.00 Weight (lbs) 2019-12-16 00:00:00 135.00 BMI 2019-12-16 00:00:00 22 Height (inches) 2019-10-16 00:00:00 65.00 Weight (lbs) 2019-10-16 00:00:00 145.00 BMI 2019-10-16 00:00:00 24 Height (inches) 2019-09-17 00:00:00 65.00 Weight (lbs) 2019-09-17 00:00:00 144.00 BMI 2019-09-17 00:00:00 24 Height (inches) 2019-08-20 00:00:00 65.00 Weight (lbs) 2019-08-20 00:00:00 144.00 BMI 2019-08-20 00:00:00 24 Height (inches) 2019-07-23 00:00:00 65.00 Weight (lbs) 2019-07-23 00:00:00 150.00 BMI 2019-07-23 00:00:00 25 Height (inches) 2019-06-25 00:00:00 65.00 Weight (lbs) 2019-06-25 00:00:00 151.00 Respiration 2019-06-25 00:00:00 17 /min BMI 2019-06-25 00:00:00 25 Height (inches) 2019-05-28 00:00:00 65.00 Weight (lbs) 2019-05-28 00:00:00 145.00 BP Systolic 2019-05-28 00:00:00 140 mm[Hg] BP Diastolic 2019-05-28 00:00:00 73 mm[Hg] Pulse 2019-05-28 00:00:00 57 /min Respiration 2019-05-28 00:00:00 17 /min BMI 2019-05-28 00:00:00 24 Pulse Oximetry 2019-05-28 00:00:00 94 /min Height (inches) 2018-10-31 00:00:00 65.00 Weight (lbs) 2018-10-31 00:00:00 150.00 BP Systolic 2018-10-31 00:00:00 134 mm[Hg] BP Diastolic 2018-10-31 00:00:00 70 mm[Hg] Pulse 2018-10-31 00:00:00 60 /min Respiration 2018-10-31 00:00:00 17 /min BMI 2018-10-31 00:00:00 25 Pulse Oximetry 2018-10-31 00:00:00 95 /min Height (inches) 2018-10-03 00:00:00 65.00 Weight (lbs) 2018-10-03 00:00:00 146.00 BP Systolic 2018-10-03 00:00:00 157 mm[Hg] BP Diastolic 2018-10-03 00:00:00 83 mm[Hg] Pulse 2018-10-03 00:00:00 58 /min Respiration 2018-10-03 00:00:00 18 /min BMI 2018-10-03 00:00:00 24 Pulse Oximetry 2018-10-03 00:00:00 96 /min Height (inches) 2018-09-05 00:00:00 65.00 Weight (lbs) 2018-09-05 00:00:00 148.00 BP Systolic 2018-09-05 00:00:00 125 mm[Hg] BP Diastolic 2018-09-05 00:00:00 72 mm[Hg] Pulse 2018-09-05 00:00:00 59 /min Respiration 2018-09-05 00:00:00 17 /min BMI 2018-09-05 00:00:00 25 Pulse Oximetry 2018-09-05 00:00:00 95 /min Height (inches) 2018-08-06 00:00:00 65.00 Weight (lbs) 2018-08-06 00:00:00 150.00 BP Systolic 2018-08-06 00:00:00 129 mm[Hg] BP Diastolic 2018-08-06 00:00:00 75 mm[Hg] Pulse 2018-08-06 00:00:00 58 /min Respiration 2018-08-06 00:00:00 17 /min BMI 2018-08-06 00:00:00 25 Pulse Oximetry 2018-08-06 00:00:00 96 /min Height (inches) 2018-07-10 00:00:00 65.00 Weight (lbs) 2018-07-10 00:00:00 150.00 BP Systolic 2018-07-10 00:00:00 118 mm[Hg] BP Diastolic 2018-07-10 00:00:00 74 mm[Hg] Pulse 2018-07-10 00:00:00 55 /min Respiration 2018-07-10 00:00:00 17 /min BMI 2018-07-10 00:00:00 25 Pulse Oximetry 2018-07-10 00:00:00 97 /min Height (inches) 2018-06-12 00:00:00 65.00 Weight (lbs) 2018-06-12 00:00:00 155.00 BP Systolic 2018-06-12 00:00:00 147 mm[Hg] BP Diastolic 2018-06-12 00:00:00 85 mm[Hg] Pulse 2018-06-12 00:00:00 60 /min Respiration 2018-06-12 00:00:00 17 /min BMI 2018-06-12 00:00:00 26 Pulse Oximetry 2018-06-12 00:00:00 96 /min Height (inches) 2018-05-14 00:00:00 65.00 Weight (lbs) 2018-05-14 00:00:00 154.00 BP Systolic 2018-05-14 00:00:00 115 mm[Hg] BP Diastolic 2018-05-14 00:00:00 75 mm[Hg] Pulse 2018-05-14 00:00:00 64 /min Respiration 2018-05-14 00:00:00 17 /min BMI 2018-05-14 00:00:00 26 Pulse Oximetry 2018-05-14 00:00:00 95 /min Height (inches) 2018-04-10 00:00:00 65.00 Weight (lbs) 2018-04-10 00:00:00 160.00 BP Systolic 2018-04-10 00:00:00 176 mm[Hg] BP Diastolic 2018-04-10 00:00:00 93 mm[Hg] Pulse 2018-04-10 00:00:00 63 /min Respiration 2018-04-10 00:00:00 18 /min BMI 2018-04-10 00:00:00 27 Pulse Oximetry 2018-04-10 00:00:00 95 /min Height (inches) 2018-03-13 00:00:00 65.00 Weight (lbs) 2018-03-13 00:00:00 159.00 BP Systolic 2018-03-13 00:00:00 175 mm[Hg] BP Diastolic 2018-03-13 00:00:00 99 mm[Hg] Pulse 2018-03-13 00:00:00 68 /min Respiration 2018-03-13 00:00:00 17 /min BMI 2018-03-13 00:00:00 26 Pulse Oximetry 2018-03-13 00:00:00 96 /min Height (inches) 2018-02-13 00:00:00 65.00 Weight (lbs) 2018-02-13 00:00:00 157.00 BP Systolic 2018-02-13 00:00:00 145 mm[Hg] BP Diastolic 2018-02-13 00:00:00 88 mm[Hg] Pulse 2018-02-13 00:00:00 61 /min Respiration 2018-02-13 00:00:00 17 /min BMI 2018-02-13 00:00:00 26 Pulse Oximetry 2018-02-13 00:00:00 94 /min Hospital Discharge Instructions No education material to displayTitleDate NrbgyQitzioiyixtvjx09-52-4657Lx education material to displayTitleDate IjqakExdrnrdggngpje67-35-8362Qz education material to displayNo education material to displayTitleDate Given Lzzwwtrlkcapyk75-05-1169Dg education material to displayTitleDate Given Cimdazlagklytf61-44-8847MftupEmen GivenRestless legs rbnwfila91-69-3348UsrieTfzd DpfmcDqtbdnjjxlmxzw32-74-5678DjuhsVtis MaydkHkgxdnofnmkfbl32-11-1819Ab education material to displayTitleDate PabvlRywessjwpbqo00-74-2452UwllkRjrd PjappShfxhwbtyqqfih55-72-1538Kxaog Injuries and Cegluluee33-66-6425Gp education material to displayNo education material to displayTitle Date Given Osteoarthritis 67-17-0577Ps education material to displayTitle Date Given Osteoarthritis [id number] Date GivenSpine Injuries and Disorders 03-13-2018 Title Date GivenOsteoarthritis 03-37-7740Vy education material to display
== END 2020-02-19 09:10 | disposition home or self-care (01) ==
LOC: SC 06:53
PROVIDERS: ATTEND Internal Medicine
DX: H25.11 Age-related nuclear cataract, right eye (principal); H43.813 Vitreous degeneration, bilateral; I10 Essential (primary) hypertension; E78.00 Pure hypercholesterolemia, unspecified; E03.9 Hypothyroidism, unspecified; J45.909 Unspecified asthma, uncomplicated; F41.8 Other specified anxiety disorders; M19.90 Unspecified osteoarthritis, unspecified site; F17.210 Nicotine dependence, cigarettes, uncomplicated; Z79.82 Long term (current) use of aspirin
CPT/HCPCS: 66984; V2632; J2250; J3490 ×2; A9270; J0171; J3010

== ENCOUNTER 2020-03-18 07:39 | Day surgery (SDC) | payer MEDICARE, OTHER ==
[~2020-03-18 07:39] MED LIST changes: +CHONDR SU A NA/HYALUR INTRAOC KIT (SURGICARE) ONE; -DORZOLAMIDE HCL 2%/TIMOLOL MALEAT 0.5% OPH SOLN 10 ML OD PRN; +EPINEPHRINE INJ/PF 1 MG/1 ML AMPULE ONE; -KETOROLAC TROMETHAMINE 0.45% 4 DROP/0.4 ML DROPERETTE OD PRN; +KETOROLAC TROMETHAMINE 0.45% 4 DROP/0.4 ML DROPERETTE OS PRN; +LIDOCAINE 1%/PHENYLEPHRINE 1.5% 1 ML VIAL ONE; -LIDOCAINE 3.5% OPH GEL/PF 1 ML/TUBE OD PRN; -PREDNISOLONE ACETATE 1% OPH SUSP 5 ML OD PRN
[2020-03-18] MEDS: TETRACAINE HCL 0.5% OPH SOLN 4 ML OS PRN ×3 (08:10→08:34)
[2020-03-18] MEDS: TROPICAMIDE 1% OPH SOLN 15 ML OS PRN ×2 (08:10→08:30)
[2020-03-18] MEDS: BESIFLOXACIN HCL 0.6% OPH SUSP 5 ML BOTTLE OS PRN ×4 (08:10→08:55)
[2020-03-18] MEDS: CYCLOPENTOLATE 0.2%/PHENYLEPHRINE 1% OPH SOLN 2 ML OS PRN ×3 (08:10→08:30)
[2020-03-18] MEDS ORDERED: FENTANYL CITRATE INJ/PF 100 MCG/2 ML AMPUL ONE (08:16)
[2020-03-18] MEDS ORDERED: MIDAZOLAM 2 MG/2 ML INJ ONE (08:16)
[2020-03-18] MEDS: PREDNISOLONE ACETATE 1% OPH SUSP 5 ML OS PRN ×2 (08:47→08:55)
[2020-03-18] MEDS: DORZOLAMIDE HCL 2%/TIMOLOL MALEAT 0.5% OPH SOLN 10 ML OS PRN ×2 (08:48→08:55)
--- NOTE | 2020-03-18 12:06 | Operative Report ---
Operative Report-[facility] Operative Report: DATE OF SURGERY: 03/18/2020 PREOPERATIVE DIAGNOSIS: Cataracts, left eye POSTOPERATIVE DIAGNOSIS: Cataract, left eye OPERATION: Cataract extraction with insertion of an IOL of the left eye. Intraocular Lens Model: [20.0 diopter SN 60 WF] Patient underwent surgery for difficulty seeing small print SURGEON: Saul Washington MD ANESTHESIA: Topical PROCEDURE: After obtaining appropriate consent, the patient's left eye was prepped and draped in a sterile fashion as well as the surgeon in the sterile manner and cataract surgery was started. First a paracentesis blade was used to make a side-port incision. Viscoelastic was used to inflate the anterior chamber. Next a 2.4 mm incision was made with a 2.4 mm blade, clear corneal temporarily. A continuous capsulorrhexis was made using a cystotome and Utrata forceps. Following this hydrodissection was carried out to make the lens fully loose and mobile and it was rotated 90 degrees. Following this, a divide and conquer technique was used to phacoemulsify the lens. The remaining cortex was removed with an irrigation/aspiration. Provisc was instilled into the capsular bag to inflate the bag.The intraocular lens was placed. The remaining viscoelastic material was removed with irrigation/aspiration. Following this, the incision was found to be watertight. Besivance and Cosopt was instilled into the eye and a protective shield was placed over the eye. The patient was returned to the postoperative recovery in a stable condition.
== END 2020-03-18 09:27 | disposition home or self-care (01) ==
LOC: SC 07:39
PROVIDERS: ATTEND Internal Medicine
DX: H25.12 Age-related nuclear cataract, left eye (principal); Z96.1 Presence of intraocular lens; Z79.82 Long term (current) use of aspirin; I10 Essential (primary) hypertension; E78.00 Pure hypercholesterolemia, unspecified; E03.9 Hypothyroidism, unspecified; F41.8 Other specified anxiety disorders; M19.90 Unspecified osteoarthritis, unspecified site; F17.210 Nicotine dependence, cigarettes, uncomplicated; J44.9 Chronic obstructive pulmonary disease, unspecified; I25.10 Atherosclerotic heart disease of native coronary artery without angina pectoris; I73.9 Peripheral vascular disease, unspecified; I71.4 Abdominal aortic aneurysm, without rupture
CPT/HCPCS: 66984; 00142; V2632; J2250; J3490 ×2; A9270; J0171; J3010; 142

== ENCOUNTER → 2020-04-21 | Outpatient (CLI) | payer MEDICARE, OTHER ==
[2020-04-21 15:44] LABS: HEMATOCRIT 30.2 % (36.0-47.0); HEMOGLOBIN 10.7 g/dL (12.0-15.5); MEAN CORPUSCULAR HEMOGLOBIN 33.7 pg (27.0-33.4); MEAN CORPUSCULAR HGB CONC 35.4 g/dL (32.0-36.0); MEAN CORPUSCULAR VOLUME 95 fl (80-97); PLATELET COUNT 247 10^3/uL (150-450); RED BLOOD COUNT 3.17 10^6/uL (3.72-5.28); RED CELL DISTRIBUTION WIDTH 13.1 % (11.5-14.0); WHITE BLOOD COUNT 5.9 10^3/uL (4.0-10.5)
[2020-04-21 16:00] LABS: ALBUMIN 3.6 g/dL (3.5-5.0); ALKALINE PHOSPHATASE 106 U/L (38-126); ASPARTATE AMINO TRANSFERASE 39 U/L (14-36); BILIRUBIN,DIRECT 0.2 mg/dL (0.0-0.4); BILIRUBIN,TOTAL 0.4 mg/dL (0.2-1.3); BLOOD UREA NITROGEN 24 mg/dL (7-20); CALCIUM 9.5 mg/dL (8.4-10.2); CHOLESTEROL 121.61 mg/dL (0-200); GLUCOSE 86 mg/dL (75-110); POTASSIUM 4.1 mmol/L (3.6-5.0); TOTAL PROTEIN 6.5 g/dL (6.3-8.2); TRIGLYCERIDES 77 mg/dL (<150)
[2020-04-21 16:05] LABS: ANION GAP 6 (5-19); CARBON DIOXIDE 28 mmol/L (22-30); CHLORIDE 106 mmol/L (98-107)
[2020-04-21 16:11] LABS: DIRECT LDL 54 mg/dL (<100)
== END ==
LOC: OD 14:44
PROVIDERS: ATTEND Physician Assistant
DX: E78.5 Hyperlipidemia, unspecified (principal); I10 Essential (primary) hypertension; D64.9 Anemia, unspecified; Z79.899 Other long term (current) drug therapy
CPT/HCPCS: 36415; 80048; 80061; 80076; 85027